=== PATIENT | female | born 1995 | race Caucasian/White ===

== ENCOUNTER 2022-05-08 16:41 | Inpatient (IN) | payer MEDICARE, MEDICAID, SELFPAY ==
[2022-05-08 16:57] VITALS: BP 117/79; PULSE 82; TEMP 36.4
[2022-05-08 17:14] VITALS: BMI 27.3
[2022-05-08] MEDS: traZODone HCL 100 MG TABLET 200 MG PO (22:10)
[2022-05-08] MEDS: Pregabalin 200 MG CAPSULE PO (22:11)
[2022-05-08] MEDS: LORazepam 0.5 MG TABLET PO (22:11)
--- NOTE | 2022-05-09 | ECG_ITS ---
Test Reason : ect clearence Blood Pressure : / mmHG Vent. Rate : 064 BPM Atrial Rate : 064 BPM P-R Int : 132 ms QRS Dur : 088 ms QT Int : 394 ms P-R-T Axes : 002 033 026 degrees QTc Int : 406 ms Normal sinus rhythm Normal ECG No previous ECGs available Referred By: Sabina Steele Electronically Signed By:AKANKSHA MARIN MD
--- NOTE | 2022-05-09 00:20 | PC.ADMIT ---
Pt is a 26 year old non-binary individual who identifies as they/them . Pt was admitted to [facility] at 1655 following referral from [facility] for a lateral transfer to receive ECT treatment here. Pt has had admissions at [place], [facility], [place] and others. Pt has a history of treatment for substance use. Pt was admitted to [place] [id number] for treatment of MDD and SI with a plan to kill self with an overdose of Klonopin. Pt had been hospitalized at [facility] and in December was d/c to [facility] for a series of 14 ECT treatments after which pt reported doing well for six weeks. Pt reported that through the month of March they had experienced an increase in panic attacks especially at work as well as racing thoughts. Pt felt ashamed of the issues at work and resigned their position there. An additional stressor at the same time was that pt's landlord was threatening eviction. Pt began to have difficulty with self care, poor attention/ concentration, low energy and anhedonia. Pt reported additionally disrupted sleep and suicidal thinking. Pt rates anxiety 10/10, depression 9/10. Pt denies AH/VH at this time. Pt reports active SI withy no plan. Pt states thay can seek help from staff. Pt reported a suicide attempt in July of 2019 that required 48 stitches to their left forearm. Pt reports poor sleep with frequent awakening. Pt was calm and cooperative during admission. Pt denies Etoh or substance use; pt says has 19 months of sobriety and utilizes AA. Pt reported weight gain, but assessment from [facility] indicates weight loss of about 20lbs. Medical issues include: migraines, asthma, GERD, IBS, history of eating d/o, Lyme disease, mononucleosis, history of Clostridium difficile, PMDD, recurrent UTI. [id number] done, Dr-to-Dr done, safety tool done, Treatment plan done and admitting orders obtained. Pt is resting in room on 15 minute checks at this time.
[2022-05-09 07:00] VITALS: BP 110/61; PULSE 94; RESP 16; TEMP 36.5; O2SAT 98
[2022-05-09] MEDS: metFORMIN HCl 500 MG TABLET PO ×2 (08:43→16:11)
[2022-05-09] MEDS: buPROPion HCl XL 150 MG TAB.ER.24H PO (08:43)
[2022-05-09] MEDS: LORazepam 1 MG TABLET PO (08:43)
[2022-05-09] MEDS: Sertraline HCL 100 MG TABLET 150 MG PO (08:43)
[2022-05-09] MEDS: buPROPion HCl XL 300 MG TAB.ER.24H PO (08:44)
[2022-05-09] MEDS: Pregabalin 200 MG CAPSULE PO ×3 (08:44→20:46)
[2022-05-09 09:38] LABS: Estimated Average Glucose 97 mg/dL
[2022-05-09 09:53] LABS: Alanine Aminotransferase 33 U/L (0-31); Albumin Level 4.4 g/dL (3.5-5.0); Alkaline Phosphatase 75 U/L (39-117); Anion Gap 11 (12-20); Aspartate Amino Transferase 21 U/L (5-31); Bilirubin Total 0.3 mg/dL (0.0-1.0); Blood Urea Nitrogen 16 mg/dL (9-16); Calcium 8.8 mg/dL (8.4-10.2); Carbon Dioxide 22 mmol/L (22-29); Chloride 110 mmol/L (96-108); Cholesterol 196 mg/dL; Creatinine Clr Calc Pharmacy 100.7; Estimated Glomerular Filt Rate > 60; Glucose Fasting 76 mg/dL (60-99); HDL Cholesterol 47 mg/dL; LDL Cholesterol Calculated 133 mg/dl; Potassium 4.4 mmol/L (3.3-5.1); Sodium 139 mmol/L (135-145); Triglycerides 83 mg/dL
--- NOTE | 2022-05-09 10:11 | HO.PSYADMNOT ---
HPI Date of Service: 05/09/22 Chief Complaint: SI Sources of Information: patient interviewed, chart reviewed and crisis/core team assessment reviewed HPI Subjective Notes: [place]le Warning and Conditional Voluntary Narrative: Patient is a 26 yo female, uses They/Them pronouns, with hx of refractory, severe depression, PTSD, ECT trials, chronic intermittent SI who presents for ECT for worsening depression, AH, SI. Patient reports patient was discharged from [facility] about a month ago with the addition of Lyrica which they found helpful for anxiety and reduced her number of panic attacks down from every day to just a few times per week. Despite this new medication, they remained depressed over these past weeks. Patient has been able to continue attending to ADLs however endorses excessive sleep, diminished interest, increased guilt, low energy, poor concentration. Also Patient reports that patient's chronic suicidality has become more severe and included plans and eventually an intention to either overdose or hang themself; patient's partner is a strong protective factor and kept patient from proceeding forward. Patient reports intermittent auditory hallucinations which are only present during severe depression of a commentary on her actions. Patient has insight to know this is is hallucination and due to depression. 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 Patient however cites difficulty getting a ride to and from maintenance ECT which patient thinks would likely help them to remain stable. Patient reports they have ongoing PTSD symptoms from history of trauma, though they did not elaborate. Denies any history of manic episodes or behaviors. Currently patient has intermittent SI but no plan or intention. Patient remains sober from alcohol for the past 19 months. Patient is eager for ECT trial. Past Psychiatric History: Long history of refractory depression Patient has therapist for the past 3 years whom patient sees once a week; good rapport [facility] in process Moderate Success with ECT trials Past med trials include: [place]: Caused nausea Clozapine: Does not remember it working Medical Evaluation Reviewed: Hospitalist Adam Pending [facility] Medical History (Updated 05/09/22 @ 15:55 by Valentino Hernandez MD) Alcohol use disorder, moderate, in sustained remission, dependence Chronic post-traumatic stress disorder (PTSD) MDD (major depressive disorder), recurrent, severe, with psychosis Panic disorder Family History: Mother: Schizoaffective disorder Social History: Graduated high school; some college but discontinued due to depressive/anxious symptoms 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; quit a couple months ago due to overwhelming depression and anxiety Has significant other with whom patient lives Currently patient and partner are having to move out of the apartment due to finances; another apartment is pending No interactions with biological family Substance History: History of alcohol abuse; sober for 19 months using AA Trauma History: History of trauma; patient did not elaborate Diagnostics Vital Signs (24Hr): Vital Signs - 24 hr 05/08/22 16:57 05/09/22 07:00 Temperature 97.6 F 97.7 F Pulse Rate 82 94 Respiratory Rate 16 Blood Pressure 117/79 110/61 Pulse Oximetry 98 Oxygen Delivery Method Room Air BMI result Body Mass Index 27.3 Labs Results: 05/09/22 07:57 Labs: Laboratory Results - last 48 hr 05/09/22 05/09/22 07:57 07:57 Sodium 139 Potassium 4.4 Chloride 110 H Carbon Dioxide 22 Anion Gap 11 L BUN 16 Creatinine 0.94 Estim Creat Clear Calc 100.7 Estimated GFR > 60 Fasting Glucose 76 Estimat Average Glucose 97 Hemoglobin A1c % 5.0 Calcium 8.8 Total Bilirubin 0.3 AST 21 ALT 33 H Alkaline Phosphatase 75 Total Protein 7.0 Albumin 4.4 Triglycerides 83 Cholesterol 196 LDL Cholesterol, Calc 133 HDL Cholesterol 47 Meds/Allergies Meds Home Medications Medication Instructions Recorded Confirmed Type Ativan 0.5 mg PO BID@1500,2100 05/08/22 05/08/22 History Ativan 1 mg PO DAILY 05/08/22 05/08/22 History Lyrica 200 mg PO TID 05/08/22 05/08/22 History Wellbutrin SR 450 mg PO DAILY 05/08/22 05/08/22 History albuterol sulfate 90 mcg/actuation 2 inh inhalation Q6H PRN Wheezing 05/08/22 05/08/22 History aerosol inhaler (ProAir HFA) melatonin 5 mg PO BEDTIME PRN Insomnia 05/08/22 05/08/22 History metformin 500 mg PO BID 05/08/22 05/08/22 History prazosin 2 mg PO BEDTIME 05/08/22 05/08/22 History sertraline 150 mg PO DAILY 05/08/22 05/08/22 History topiramate 50 mg PO BID 05/08/22 05/08/22 History trazodone 200 mg PO BEDTIME 05/08/22 05/08/22 History Allergies Allergies Allergy/AdvReac Type Severity Reaction Status Date / Time Peanut Butter Allergy Anaphylaxis Verified 05/08/22 17:18 shellfish derived Allergy Swelling Verified 05/08/22 17:20 tree nut Allergy Anaphylaxis Verified 05/08/22 17:19 Sulfa (Sulfonamide AdvReac Rash Verified 05/08/22 17:20 Antibiotics) Mental Status Exam Mental Status Exam Narrative: Pt is alert and oriented; behavior is cooperative, friendly and calm; patient is not in distress; dressed in casual attire with unkempt hair but adequate hygiene; mood is described as depressed and affect congruent, blunted, downcast; minimal eye contact but making effort; Speech is normal rate, volume and prosody and not pressured; psychomotor retardation present; thought process is organized and goal directed; Thought content is on tx, trying to be hopeful; otherwise pertinent to relevant topics and without any delusional content, paranoid ideations or grandiosity; Intermittent SI present; no HI. Intermittent AH present. Patients insight and judgment appear intact. Assessment & Plan Assessment & Plan (1) MDD (major depressive disorder), recurrent, severe, with psychosis: Status: Acute Code(s): F33.3 - Major depressive disorder, recurrent, severe with psychotic symptoms (2) Chronic post-traumatic stress disorder (PTSD): Status: Acute Code(s): F43.12 - Post-traumatic stress disorder, chronic (3) Panic disorder: Status: Acute Code(s): F41.0 - Panic disorder [episodic paroxysmal anxiety] (4) Alcohol use disorder, moderate, in sustained remission, dependence: Status: Acute Code(s): F10.21 - Alcohol dependence, in remission Plan Patient is a 26 yo female, uses They/Them pronouns, with hx of refractory, severe depression, PTSD, ECT trials, chronic intermittent SI who presents for ECT for worsening depression, AH, SI. Patient reports patient was discharged from [facility] about a month ago with the addition of Lyrica which they found helpful for anxiety and reduced their number of panic attacks down from every day to just a few times per week. Despite this new medication, they remained depressed over these past weeks. -patient eager for ECT and would like help setting up for maintenance ECT -continues to have intermittent SI but no plans or intent and feels safe on the unit PLAN: CV Q 15 minute checks Continue home medications for now Patient reports that Zoloft has been helpful; has never been on a higher dose; will consider increasing Consult placed for ECT clearance; EKG ordered for ECT clearance Patient educated on: diagnosis, medication risk/benefits, substance abuse and therapeutic strategies Informed Consent: understands Reason for continued inpatient stay Substantial Risk for: inability to function and rapid decompensation
[2022-05-09 10:16] LABS: Thyroid Stimulating Hormone 1.65 uIU/mL (0.32-4.0)
[2022-05-09 10:44] LABS: Folate 15.9 ng/mL (> or = 4.0); Vitamin B12 358 pg/mL (200-900)
[2022-05-09] MEDS: Nicotine Polacrilex Lozenge 4 MG LOZENGE BUCCAL (11:01)
[2022-05-09] MEDS: Nicotine Polacrilex 2 MG GUM BUCCAL ×2 (13:52→21:04)
[2022-05-09] MEDS: LORazepam 0.5 MG TABLET PO ×2 (14:40→20:46)
[2022-05-09 15:00] VITALS: BP 120/72
--- NOTE | 2022-05-09 15:07 | HO.PM.IMCN ---
History of Present Illness Data of Consult Service Date: 05/09/22 Primary Care Provider: Unknown Physician HPI Reason for consult: Routine Medical H&P + pre-op eval for ECT This is a 26 year old female with a PMH of intermittent asthma and migranes who is admitted to . Medical consult requested for routine medical H&P as well as pre-op eval prior to ECT. Pt seen and examined in her room. She denies any cardiac symptoms. Reports her asthma is intermittent and related to seasonal allergies. On albuterol inhaler. Denies any personal history of CAD/TBI. She reports a history of migranes for which she is on topomax. She reports prior ECTs without any cardiopulmonary issues related to ECTs. PMH Asthma Migranes PSH Denies Tobacco 2 cigs daily Denies EtOH (sober 19 months); Denies illicit substances FH no history of CAD mental health issues Review of Systems Review of Systems: negative except HPI [facility] Medical History (Updated 05/09/22 @ 16:09 by Richardson Willis MD) Alcohol use disorder, moderate, in sustained remission, dependence Chronic post-traumatic stress disorder (PTSD) MDD (major depressive disorder), recurrent, severe, with psychosis Panic disorder Social History Household Members: Significant Other Housing: Apartment Do you presently have visiting nurse or other home services: No Patient Tobacco Use Status: Current someday Tobacco user Tobacco use type: Cigarette Cigarettes Per Day: 2 Years Smoked: 10 Smoked in Last 30 Days: Yes e-Cigarette/Vaping Use: Currently Using Frequency of e-Cigarette/Vaping Use: 5 or 6 times daily if available as a treat Patient Interested in Nicotine Replacement: Yes (Pt would like Nicotine gum) Patient Given Instructions on How to Stop Smoking: Yes Date Education Initiated: 05/08/22 Second Hand Smoke Exposure: Yes Use of substances other than those prescribed or required for medical reasons: No Currently Displaying Signs/Symptoms of Drug Intoxication Withdrawal: No Any prior treatment program specific to substance use: Yes ([place] in 2019) Have you been hit, kicked, punched, or otherwise hurt by someone within the past year? If so, by whom?: No Do you feel safe in your current relationship?: Yes Is there a partner from a previous relationship who is making you feel unsafe now?: No Are you made to feel afraid or neglected: No Spiritual Healthcare Practices: None Latter-Day Healthcare Practices: None Cultural Healthcare Practices: None Advance Directives: No Advance Directives Information Provided: No Advance Directives on File: No Do you have thoughts of harming others: None Do you have a plan to hurt others: No Plan Recently lost weight without trying: No Eating poorly because of decreased appetite: Yes Nutrition Risks: No Nutritional Risk Patient : No : No Poor oral hygiene: Yes service: No Sexual orientation: Did not discuss Meds Allergies Allergy/AdvReac Type Severity Reaction Status Date / Time Peanut Butter Allergy Anaphylaxis Verified 05/08/22 17:18 shellfish derived Allergy Swelling Verified 05/08/22 17:20 tree nut Allergy Anaphylaxis Verified 05/08/22 17:19 Sulfa (Sulfonamide AdvReac Rash Verified 05/08/22 17:20 Antibiotics) Active Medications: Current Medications Acetaminophen (Acetaminophen 325 Mg Tablet) 650 mg PO Q6H PRN PRN Reason: Headache/Pain Mild Scale (1-3) Al Hydroxide/Mg Hydroxide (Magnesium Hydrox/Alum Hydrox 30 Ml Oral.Susp) 30 ml PO Q6H PRN PRN Reason: Heartburn/Nausea Albuterol Sulfate (Albuterol Sulfate 90 Mcg 8 Gm Inhaler) 2 puff INHALE Q6H PRN PRN Reason: Wheezing Bupropion HCl (Bupropion Hcl Xl 300 Mg Tab.Er.24h) 300 mg PO DAILY [facility] Last Admin: 05/09/22 08:44 Dose: 300 mg Bupropion HCl (Bupropion Hcl Xl 150 Mg Tab.Er.24h) 150 mg PO DAILY [facility] Last Admin: 05/09/22 08:43 Dose: 150 mg Hydroxyzine HCl (Hydroxyzine Hcl 25 Mg Tablet) 25 mg PO Q6H PRN PRN Reason: Anxiety Lorazepam (Lorazepam 0.5 Mg Tablet) 0.5 mg PO BID@1500,2100 [facility] Last Admin: 05/09/22 14:40 Dose: 0.5 mg Lorazepam (Lorazepam 1 Mg Tablet) 1 mg PO DAILY [facility] Last Admin: 05/09/22 08:43 Dose: 1 mg Lorazepam (Lorazepam 0.5 Mg Tablet) 0.5 mg PO DAILY PRN PRN Reason: break through anxiety Magnesium Hydroxide (Milk Of Magnesia 30 Ml Oral.Susp) 30 ml PO DAILY PRN PRN Reason: Constipation Melatonin (Melatonin 3 Mg Tablet) 6 mg PO BEDTIME PRN PRN Reason: Insomnia Metformin HCl (Metformin Hcl 500 Mg Tablet) 500 mg PO BIDWM [facility] Last Admin: 05/09/22 08:43 Dose: 500 mg Nicotine (Nicotine 21 Mg Patch.Td24) 21 mg TRANSDERMA DAILY PRN PRN Reason: smoking cessation Nicotine Polacrilex (Nicotine Polacrilex 2 Mg Gum) 2 mg BUCCAL Q1H PRN PRN Reason: Nicotine Cravings Last Admin: 05/09/22 13:52 Dose: 2 mg Prazosin HCl (Prazosin Hcl 1 Mg Capsule) 2 mg PO BEDTIME IDANIA Pregabalin (Pregabalin 200 Mg Capsule) 200 mg PO TID [facility] Last Admin: 05/09/22 14:40 Dose: 200 mg Sertraline HCl (Sertraline Hcl 100 Mg Tablet) 150 mg PO DAILY [facility] Last Admin: 05/09/22 08:43 Dose: 150 mg Trazodone HCl (Trazodone Hcl 50 Mg Tablet) 50 mg PO BEDTIME PRN PRN Reason: Insomnia Trazodone HCl (Trazodone Hcl 100 Mg Tablet) 200 mg PO BEDTIME [facility] Last Admin: 05/08/22 22:10 Dose: 200 mg Home Medications Medication Instructions Recorded Confirmed Last Taken Type Ativan 0.5 mg PO BID@1500,2100 05/08/22 05/08/22 Unknown History Ativan 1 mg PO DAILY 05/08/22 05/08/22 Unknown History Lyrica 200 mg PO TID 05/08/22 05/08/22 Unknown History Wellbutrin SR 450 mg PO DAILY 05/08/22 05/08/22 Unknown History albuterol sulfate 90 mcg/actuation 2 inh inhalation Q6H PRN Wheezing 05/08/22 05/08/22 Unknown History aerosol inhaler (ProAir HFA) melatonin 5 mg PO BEDTIME PRN Insomnia 05/08/22 05/08/22 Unknown History metformin 500 mg PO BID 05/08/22 05/08/22 05/08/22 07:00 History prazosin 2 mg PO BEDTIME 05/08/22 05/08/22 05/07/22 20:54 History 2 mg sertraline 150 mg PO DAILY 05/08/22 05/08/22 05/08/22 08:16 History topiramate 50 mg PO BID 05/08/22 05/08/22 05/08/22 08:16 History 50 mg trazodone 200 mg PO BEDTIME 05/08/22 05/08/22 05/07/22 20:54 History 200 mg Physical Exam Vital Signs and Narrative: Vital Signs: Last Vital Signs Temp 97.7 F 05/09/22 07:00 Pulse 94 05/09/22 07:00 Resp 16 05/09/22 07:00 BP 120/72 05/09/22 15:00 Pulse Ox 98 05/09/22 07:00 O2 Del Method 05/09/22 07:00 BMI result Body Mass Index 27.3 Const: Other: General - no acute distress, appears comfortable Cardiovascular - regular rate and rhythm, S1-S2 Lungs - normal respiratory effort, clear to auscultation bilaterally, no wheezing Abdomen - soft, nontender, no rebound or guarding Extremities - no edema bilaterally Neuro - awake and alert, no focal deficits Results Labs CBC and Chem 7: 05/09/22 07:57 Labs: Laboratory Results - last 24 hr 05/09/22 05/09/22 05/09/22 07:57 07:57 07:57 Anion Gap 11 L Estim Creat Clear Calc 100.7 Estimated GFR > 60 Fasting Glucose 76 Estimat Average Glucose 97 Hemoglobin A1c % 5.0 Calcium 8.8 Total Bilirubin 0.3 AST 21 ALT 33 H Alkaline Phosphatase 75 Total Protein 7.0 Albumin 4.4 Triglycerides 83 Cholesterol 196 LDL Cholesterol, Calc 133 HDL Cholesterol 47 Vitamin B12 358 Folate 15.9 TSH 1.65 Assessment and Plan (1) Routine medical exam: Status: Acute Plan 26 yo female who is admitted to . Medical consult is requested for routine medical H&P as well as preoperative evaluation prior to ECT. Patient has previously tolerated ECTs. Her EKG is reviewed and is normal sinus rhythm. She does not have any contraindications for ECT. Would check a CBC if not done at transferring facility otherwise no further workup is needed prior to proceeding. Continue her baseline asthma/migrane meds Will sign off. Please reconsult PRN.
[2022-05-09 18:00] VITALS: BP 89/64; PULSE 122; RESP 16; TEMP 36.8; O2SAT 99
[2022-05-09] MEDS: traZODone HCL 100 MG TABLET 200 MG PO (20:46)
[2022-05-09] MEDS: Prazosin HCL 1 MG CAPSULE 2 MG PO (20:46)
[2022-05-10] VITALS (10 sets, daily range): BP systolic 85–120; BP diastolic 63–78; PULSE 66–97; RESP 12–23; TEMP 36.4–37.1; O2SAT 95–99
--- NOTE | 2022-05-10 09:00 | P.CONAN_ITS ---
[facility] Active Problems Active Problems: All Active Problems (Updated 05/09/22 @ 16:09 by Richardson Willis MD) Routine medical exam (Acute) Alcohol use disorder, moderate, in sustained remission, dependence (Acute) Panic disorder (Acute) Chronic post-traumatic stress disorder (PTSD) (Acute) MDD (major depressive disorder), recurrent, severe, with psychosis (Acute) Past Medical History Medical History (Updated 05/09/22 @ 16:09 by Richardson Willis MD) Alcohol use disorder, moderate, in sustained remission, dependence Chronic post-traumatic stress disorder (PTSD) MDD (major depressive disorder), recurrent, severe, with psychosis Panic disorder Family History Family history of problems with anesthesia: No Surgical History History of Problems with Anesthesia: No Social History Social History Household Members: Significant Other Housing: Apartment Do you presently have visiting nurse or other home services: No Patient Tobacco Use Status: Current someday Tobacco user Tobacco use type: Cigarette Cigarettes Per Day: 2 Years Smoked: 10 Smoked in Last 30 Days: Yes e-Cigarette/Vaping Use: Currently Using Frequency of e-Cigarette/Vaping Use: 5 or 6 times daily if available as a treat Patient Interested in Nicotine Replacement: Yes (Pt would like Nicotine gum) Patient Given Instructions on How to Stop Smoking: Yes Date Education Initiated: 05/08/22 Second Hand Smoke Exposure: Yes Use of substances other than those prescribed or required for medical reasons: No Currently Displaying Signs/Symptoms of Drug Intoxication Withdrawal: No Any prior treatment program specific to substance use: Yes ([facility] in 2020) Have you been hit, kicked, punched, or otherwise hurt by someone within the past year? If so, by whom?: No Do you feel safe in your current relationship?: Yes Is there a partner from a previous relationship who is making you feel unsafe now?: No Are you made to feel afraid or neglected: No Spiritual Healthcare Practices: None Jainism Healthcare Practices: None Cultural Healthcare Practices: None Are you DNR?: No Advance Directives: No Advance Directives Information Provided: No Advance Directives on File: No Do you have thoughts of harming others: None Do you have a plan to hurt others: No Plan Recently lost weight without trying: No Eating poorly because of decreased appetite: Yes Nutrition Risks: No Nutritional Risk Patient : No : No Poor oral hygiene: Yes service: No Sexual orientation: Did not discuss Meds Allergies Allergy/AdvReac Type Severity Reaction Status Date / Time Peanut Butter Allergy Anaphylaxis Verified 05/08/22 17:18 shellfish derived Allergy Swelling Verified 05/08/22 17:20 tree nut Allergy Anaphylaxis Verified 05/08/22 17:19 Sulfa (Sulfonamide AdvReac Rash Verified 05/08/22 17:20 Antibiotics) Active Medications: Current Medications Acetaminophen (Acetaminophen 325 Mg Tablet) 650 mg PO Q6H PRN PRN Reason: Headache/Pain Mild Scale (1-3) Al Hydroxide/Mg Hydroxide (Magnesium Hydrox/Alum Hydrox 30 Ml Oral.Susp) 30 ml PO Q6H PRN PRN Reason: Heartburn/Nausea Albuterol Sulfate (Albuterol Sulfate 90 Mcg 8 Gm Inhaler) 2 puff INHALE Q6H PRN PRN Reason: Wheezing Bupropion HCl (Bupropion Hcl Xl 300 Mg Tab.Er.24h) 300 mg PO DAILY [facility] Last Admin: 05/09/22 08:44 Dose: 300 mg Bupropion HCl (Bupropion Hcl Xl 150 Mg Tab.Er.24h) 150 mg PO DAILY [facility] Last Admin: 05/09/22 08:43 Dose: 150 mg Hydroxyzine HCl (Hydroxyzine Hcl 25 Mg Tablet) 25 mg PO Q6H PRN PRN Reason: Anxiety Lorazepam (Lorazepam 0.5 Mg Tablet) 0.5 mg PO BID@1500,2100 [facility] Last Admin: 05/09/22 20:46 Dose: 0.5 mg Lorazepam (Lorazepam 1 Mg Tablet) 1 mg PO DAILY [facility] Last Admin: 05/09/22 08:43 Dose: 1 mg Lorazepam (Lorazepam 0.5 Mg Tablet) 0.5 mg PO DAILY PRN PRN Reason: break through anxiety Magnesium Hydroxide (Milk Of Magnesia 30 Ml Oral.Susp) 30 ml PO DAILY PRN PRN Reason: Constipation Melatonin (Melatonin 3 Mg Tablet) 6 mg PO BEDTIME PRN PRN Reason: Insomnia Metformin HCl (Metformin Hcl 500 Mg Tablet) 500 mg PO BIDWM [facility] Last Admin: 05/09/22 16:11 Dose: 500 mg Nicotine (Nicotine 21 Mg Patch.Td24) 21 mg TRANSDERMA DAILY PRN PRN Reason: smoking cessation Nicotine Polacrilex (Nicotine Polacrilex 2 Mg Gum) 2 mg BUCCAL Q1H PRN PRN Reason: Nicotine Cravings Last Admin: 05/09/22 21:04 Dose: 2 mg Prazosin HCl (Prazosin Hcl 1 Mg Capsule) 2 mg PO BEDTIME [facility] Last Admin: 05/09/22 20:46 Dose: 2 mg Pregabalin (Pregabalin 200 Mg Capsule) 200 mg PO TID [facility] Last Admin: 05/09/22 20:46 Dose: 200 mg Sertraline HCl (Sertraline Hcl 100 Mg Tablet) 150 mg PO DAILY [facility] Last Admin: 05/09/22 08:43 Dose: 150 mg Trazodone HCl (Trazodone Hcl 50 Mg Tablet) 50 mg PO BEDTIME PRN PRN Reason: Insomnia Trazodone HCl (Trazodone Hcl 100 Mg Tablet) 200 mg PO BEDTIME [facility] Last Admin: 05/09/22 20:46 Dose: 200 mg Home Medications Medication Instructions Recorded Confirmed Last Taken Type Ativan 0.5 mg PO BID@1500,2100 05/08/22 05/08/22 Unknown History Ativan 1 mg PO DAILY 05/08/22 05/08/22 Unknown History Lyrica 200 mg PO TID 05/08/22 05/08/22 Unknown History Wellbutrin SR 450 mg PO DAILY 05/08/22 05/08/22 Unknown History albuterol sulfate 90 mcg/actuation 2 inh inhalation Q6H PRN Wheezing 05/08/22 05/08/22 Unknown History aerosol inhaler (ProAir HFA) melatonin 5 mg PO BEDTIME PRN Insomnia 05/08/22 05/08/22 Unknown History metformin 500 mg PO BID 05/08/22 05/08/22 05/08/22 07:00 History prazosin 2 mg PO BEDTIME 05/08/22 05/08/22 05/07/22 20:54 History 2 mg sertraline 150 mg PO DAILY 05/08/22 05/08/22 05/08/22 08:16 History topiramate 50 mg PO BID 05/08/22 05/08/22 05/08/22 08:16 History 50 mg trazodone 200 mg PO BEDTIME 05/08/22 05/08/22 05/07/22 20:54 History 200 mg Exam Exam Date and Time: May 10, 2022 0900 Height,Weight and Vital Signs: Height 5 ft 8 in Weight 81.647 kg Last Vital Signs Temp 98 F 05/10/22 08:46 Pulse 76 05/10/22 08:46 Resp 12 05/10/22 08:46 BP 103/69 05/10/22 08:46 Pulse Ox 96 05/10/22 08:46 O2 Del Method 05/10/22 08:46 Pertinent Lab Results Pertinent Lab Results: Laboratory Tests 05/09/22 05/09/22 05/09/22 07:57 07:57 07:57 Sodium 139 Potassium 4.4 Chloride 110 H Carbon Dioxide 22 Anion Gap 11 L BUN 16 Creatinine 0.94 Estim Creat Clear Calc 100.7 Estimated GFR > 60 Fasting Glucose 76 Estimat Average Glucose 97 Hemoglobin A1c % 5.0 Calcium 8.8 Total Bilirubin 0.3 AST 21 ALT 33 H Alkaline Phosphatase 75 Total Protein 7.0 Albumin 4.4 Triglycerides 83 Cholesterol 196 LDL Cholesterol, Calc 133 HDL Cholesterol 47 Vitamin B12 358 Folate 15.9 TSH 1.65 Airway Mallampati Class: II TM Dist: >3cm Neck ROM: Full Heart: rrr Lungs: cta Assessment and Plan Assessment Anesthesia Assessment: Anesthesia Plan Discussed and Chart Reviewed Final Anesthetic Review Family History of Problems with Anesthesia: No History of Problems with Anesthesia: No NPO: Yes ASA Class: III Final Preanesthetic Review: No Changes in Pt Med Stat, Meds/Allgs Chart Reviewed and Consent Obtained/Reviewed Patient Risk: Intermediate Procedure Risk: Intermediate Anesthetic Plan Anesthetic Plan: GA Disposition: Standard PACU
[2022-05-10 09:10] LABS: COVID-19 Test Negative (Negative)
--- NOTE | 2022-05-10 10:30 | MHC.SHP ---
Pre-Procedural Eval Section A Date of Service: 05/10/22 The patient is an INPATIENT: Yes Changes since office visit: Yes Patient answered all questions; No Cold of Flu in the past 2 weeks, No New Medical Problems and No Changes in Medication The History & Physical has been completed within 30 days and I have reviewed it.: Yes Section B Chief Complaint: SI Allergies: Allergies Allergy/AdvReac Type Severity Reaction Status Date / Time Peanut Butter Allergy Anaphylaxis Verified 05/08/22 17:18 shellfish derived Allergy Swelling Verified 05/08/22 17:20 tree nut Allergy Anaphylaxis Verified 05/08/22 17:19 Sulfa (Sulfonamide AdvReac Rash Verified 05/08/22 17:20 Antibiotics) Plan I have reviewed the history and physical and performed a pertinent physical examination on my patient. No changes have occurred unless specified.
--- NOTE | 2022-05-10 10:42 | HO.ECTPROC ---
ECT Procedure Note Diagnosis/Treatment Date of Service: 05/10/22 Diagnosis: Major Depressive Disorder and Other (PTSD) Current Treatment Number: 1 Treatment: Series Interval Clinical Notes: PATIENT'S RECORDS REVIEWED HISTORY OF GOOD RESPONSE TO BY TEMPORAL ECT LAST TREATED AT [facility]. STATES MOST LIKELY UNABLE TO DO OUTPATIENT ECT. COMPLEX DEPRESSION AND PTSD DENIES SIGNIFICANT PRIOR SIDE EFFECTS FROM ECT HAS HAD AT [facility] HISTORY OF MUSCLE PAIN WITH SUCCINYLCHOLINE DISCUSSED WITH ANESTHESIA USING LOW-DOSE NON DIPOLE ARISING AGENT ROCURONIUM 5 MG IN ADDITION TO SUCCINYLCHOLINE TO PREVENT MUSCLE PAIN ECT Settings Device: THYMATRON DGx Electrode Placement: Bitemporal Program/Pulse Width: 0.50 Energy Percent: 100 Seizure Duration By EEG (in seconds): 32 Medications Administration General Anesthetic: Etomidate (16) Muscle Relaxant: Succinylcholine (100) Ancillary Medications Analgesics: Torodol - Pre ECT (30) Anti-emetics: Zofran - Post ECT Miscillaneous Medications: Flumazenil (500 MG) Airway Management Airway Management: Bag Mask Ventilation Treatment Recommendations No Changes Recommended: No change Notes: HYPERVENTILATE PRIOR TO TREATMENT
[2022-05-10] MEDS: Pregabalin 200 MG CAPSULE PO ×3 (11:56→20:10)
[2022-05-10] MEDS: Sertraline HCL 100 MG TABLET 150 MG PO (11:58)
[2022-05-10] MEDS: Nicotine Polacrilex 2 MG GUM BUCCAL (11:59)
[2022-05-10] MEDS: buPROPion HCl XL 150 MG TAB.ER.24H PO (11:59)
[2022-05-10] MEDS: buPROPion HCl XL 300 MG TAB.ER.24H PO (11:59)
[2022-05-10] MEDS: metFORMIN HCl 500 MG TABLET PO ×2 (11:59→15:51)
[2022-05-10] MEDS: LORazepam 1 MG TABLET PO (11:59)
[2022-05-10] MEDS: LORazepam 0.5 MG TABLET PO ×2 (15:50→20:10)
--- NOTE | 2022-05-10 18:45 | HO.PSYCHPN ---
Subjective Subjective Date of Service: 05/10/22 Reason For Visit: SI Subjective Notes: Conditional Voluntary Healthcare Proxy: No Guardianship: No Interim History: PATIENT'S CHART REVIEWED EXTENSIVELY RECORDS FROM BOTH [facility] IN [facility]. REVIEWED RISKS BENEFITS SIDE EFFECTS AND ALTERNATIVES TO TREATMENT WITH ECT. PATIENT ABLE TO GIVE INFORMED CONSENT SEE CT NO Mental Status Exam Mental Status Exam Narrative: Pt is alert and oriented; behavior is cooperative, casually dressed good eye contact. It denies current severe recurrent intrusive PTSD recollections mood is depressed and affect congruent, blunted, downcast; minimal eye contact but making effort; Speech is normal rate, volume and prosody and not pressured; some psychomotor retardation present; thought process is organized and goal directed; Thought content is on tx, trying to be hopeful, managing pending homelessness; otherwise pertinent to relevant topics and without any delusional content, paranoid ideation grandiosity; No active SI; no HI. no AH. Patients insight and judgment appear intact. Diagnostics Vital Signs (24Hr): Vital Signs - 24 hr 05/12/22 06:00 Temperature 97.4 F Pulse Rate 90 Blood Pressure 100/52 L Pulse Oximetry 97 Oxygen Delivery Method Room Air BMI result Body Mass Index 27.3 Labs Results: 05/09/22 07:57 Medications Medications Current Medications Acetaminophen (Acetaminophen 325 Mg Tablet) 650 mg PO Q6H PRN PRN Reason: Headache/Pain Mild Scale (1-3) Al Hydroxide/Mg Hydroxide (Magnesium Hydrox/Alum Hydrox 30 Ml Oral.Susp) 30 ml PO Q6H PRN PRN Reason: Heartburn/Nausea Albuterol Sulfate (Albuterol Sulfate 90 Mcg 8 Gm Inhaler) 2 puff INHALE Q6H PRN PRN Reason: Wheezing Bupropion HCl (Bupropion Hcl Xl 300 Mg Tab.Er.24h) 300 mg PO DAILY [facility] Last Admin: 05/12/22 09:03 Dose: 300 mg Bupropion HCl (Bupropion Hcl Xl 150 Mg Tab.Er.24h) 150 mg PO DAILY [facility] Last Admin: 05/12/22 09:03 Dose: 150 mg Hydroxyzine HCl (Hydroxyzine Hcl 25 Mg Tablet) 25 mg PO Q6H PRN PRN Reason: Anxiety Lorazepam (Lorazepam 0.5 Mg Tablet) 0.5 mg PO BID@1500,2100 [facility] Last Admin: 05/12/22 14:14 Dose: 0.5 mg Lorazepam (Lorazepam 1 Mg Tablet) 1 mg PO DAILY [facility] Last Admin: 05/12/22 09:05 Dose: 1 mg Lorazepam (Lorazepam 0.5 Mg Tablet) 0.5 mg PO DAILY PRN PRN Reason: break through anxiety Last Admin: 05/12/22 18:32 Dose: 0.5 mg Magnesium Hydroxide (Milk Of Magnesia 30 Ml Oral.Susp) 30 ml PO DAILY PRN PRN Reason: Constipation Melatonin (Melatonin 3 Mg Tablet) 6 mg PO BEDTIME PRN PRN Reason: Insomnia Metformin HCl (Metformin Hcl 500 Mg Tablet) 500 mg PO BIDWM [facility] Last Admin: 05/12/22 17:19 Dose: 500 mg Nicotine (Nicotine 21 Mg Patch.Td24) 21 mg TRANSDERMA DAILY PRN PRN Reason: smoking cessation Nicotine Polacrilex (Nicotine Polacrilex 2 Mg Gum) 2 mg BUCCAL Q1H PRN PRN Reason: Nicotine Cravings Last Admin: 05/12/22 18:13 Dose: 2 mg Prazosin HCl (Prazosin Hcl 1 Mg Capsule) 2 mg PO BEDTIME [facility] Last Admin: 05/11/22 21:54 Dose: 2 mg Pregabalin (Pregabalin 200 Mg Capsule) 200 mg PO TID [facility] Last Admin: 05/12/22 14:14 Dose: 200 mg Sertraline HCl (Sertraline Hcl 100 Mg Tablet) 150 mg PO DAILY [facility] Last Admin: 05/12/22 09:04 Dose: 150 mg Trazodone HCl (Trazodone Hcl 50 Mg Tablet) 50 mg PO BEDTIME PRN PRN Reason: Insomnia Trazodone HCl (Trazodone Hcl 100 Mg Tablet) 200 mg PO BEDTIME [facility] Last Admin: 05/11/22 21:55 Dose: 200 mg Allergies Allergies Allergy/AdvReac Type Severity Reaction Status Date / Time Peanut Butter Allergy Anaphylaxis Verified 05/08/22 17:18 shellfish derived Allergy Swelling Verified 05/08/22 17:20 tree nut Allergy Anaphylaxis Verified 05/08/22 17:19 Sulfa (Sulfonamide AdvReac Rash Verified 05/08/22 17:20 Antibiotics) Assessment & Plan Assessment & Plan (1) Routine medical exam: Status: Acute Code(s): Z00.00 - Encounter for general adult medical examination without abnormal findings Plan Patient is a 26 yo female, uses They/Them pronouns, with hx of refractory, severe depression, PTSD, ECT trials, chronic intermittent SI who presents for ECT for worsening depression, AH, SI.? Patient reports patient was discharged from [facility] about a month ago with the addition of Lyrica which they found helpful for anxiety and reduced their number of panic attacks down from every day to just a few times per week.? Despite this new medication, they remained depressed over these past weeks. -patient eager for ECT and would like help setting up for maintenance ECT -continues to have intermittent SI but no plans or intent and feels safe on the unit 05/10/[address] note med eval and history reviewed patient able to give informed consent would benefit from outpatient and maintenance ECT treatment if possible severe outpatient stressors including possible homelessness I spent minutes with the patient and/or on the patient floor today, greater than?50% of which was spent counseling/coordinating care. Reason for contiued inpatient stay Substantial Risk for: harm to self, inability to function and rapid decompensation
[2022-05-10] MEDS: Prazosin HCL 1 MG CAPSULE 2 MG PO (20:10)
[2022-05-10] MEDS: traZODone HCL 100 MG TABLET 200 MG PO (20:10)
[2022-05-11 06:00] VITALS: BP 108/59; PULSE 81; TEMP 36.7; O2SAT 96
[2022-05-11] MEDS: Pregabalin 200 MG CAPSULE PO ×3 (08:39→21:54)
[2022-05-11] MEDS: LORazepam 1 MG TABLET PO (08:39)
[2022-05-11] MEDS: buPROPion HCl XL 300 MG TAB.ER.24H PO (08:39)
[2022-05-11] MEDS: Sertraline HCL 100 MG TABLET 150 MG PO (08:39)
[2022-05-11] MEDS: buPROPion HCl XL 150 MG TAB.ER.24H PO (08:39)
[2022-05-11] MEDS: metFORMIN HCl 500 MG TABLET PO ×2 (08:40→16:43)
[2022-05-11] MEDS: Nicotine Polacrilex 2 MG GUM BUCCAL ×3 (11:49→21:55)
--- NOTE | 2022-05-11 13:03 | HO.PSYCHPN ---
Subjective Subjective Date of Service: 05/11/22 Reason For Visit: SI Interim History: Patient reports she is depressed, tearful. She said she woke up a little confused this morning and a little funky which he thinks is because of the ECT. Patient says she has not been thinking about suicidal ideation since she is dealing with a whole lot of other things. Patient explained that her boyfriend/partner is likely going to move in with his parents unless they get housing together and if he does she is not able to join. After 7 years together, she is feeling a little startled by this decision of his. She says that he does not understand how severely debilitating her depression is and thinks she is using it as an excuse to get out of contributing her share of the finances. [employer] offered to have boyfriend come in for a family meeting and some education on psychiatric illness; she will see if he is willing. Patient may be able to go and stay with her friend. Patient is faced with possibly having to stop ECT early in order to go back to her apartment and pack up for the move. Mental Status Exam Mental Status Exam Narrative: Pt is alert and oriented; behavior is cooperative, friendly; intermittently tearful; dressed in casual attire with unkempt hair but adequate hygiene; mood is described as depressed and affect congruent, blunted, downcast; minimal eye contact but making effort; Speech is normal rate, volume and prosody and not pressured; psychomotor retardation present; thought process is organized and goal directed; Thought content is on tx, trying to be hopeful; otherwise pertinent to relevant topics and without any delusional content, paranoid ideations or grandiosity; Intermittent SI present; no HI. Intermittent AH present. Patients insight and judgment appear intact. Diagnostics Vital Signs (24Hr): Vital Signs - 24 hr 05/10/22 16:20 05/11/22 06:00 Temperature 97.9 F 98.1 F Pulse Rate 85 81 Respiratory Rate 16 Blood Pressure 85/64 L 108/59 L Pulse Oximetry 99 96 Oxygen Delivery Method Room Air Room Air BMI result Body Mass Index 27.3 Labs Results: 05/09/22 07:57 Labs: Laboratory Results - last 48 hr 05/10/22 08:30 COVID-19 ([facility]) Negative COVID-19 Clin Com See Note Medications Medications Current Medications Acetaminophen (Acetaminophen 325 Mg Tablet) 650 mg PO Q6H PRN PRN Reason: Headache/Pain Mild Scale (1-3) Al Hydroxide/Mg Hydroxide (Magnesium Hydrox/Alum Hydrox 30 Ml Oral.Susp) 30 ml PO Q6H PRN PRN Reason: Heartburn/Nausea Albuterol Sulfate (Albuterol Sulfate 90 Mcg 8 Gm Inhaler) 2 puff INHALE Q6H PRN PRN Reason: Wheezing Bupropion HCl (Bupropion Hcl Xl 300 Mg Tab.Er.24h) 300 mg PO DAILY [facility] Last Admin: 05/11/22 08:39 Dose: 300 mg Bupropion HCl (Bupropion Hcl Xl 150 Mg Tab.Er.24h) 150 mg PO DAILY [facility] Last Admin: 05/11/22 08:39 Dose: 150 mg Hydroxyzine HCl (Hydroxyzine Hcl 25 Mg Tablet) 25 mg PO Q6H PRN PRN Reason: Anxiety Lorazepam (Lorazepam 0.5 Mg Tablet) 0.5 mg PO BID@1500,2100 [facility] Last Admin: 05/10/22 20:10 Dose: 0.5 mg Lorazepam (Lorazepam 1 Mg Tablet) 1 mg PO DAILY [facility] Last Admin: 05/11/22 08:39 Dose: 1 mg Lorazepam (Lorazepam 0.5 Mg Tablet) 0.5 mg PO DAILY PRN PRN Reason: break through anxiety Magnesium Hydroxide (Milk Of Magnesia 30 Ml Oral.Susp) 30 ml PO DAILY PRN PRN Reason: Constipation Melatonin (Melatonin 3 Mg Tablet) 6 mg PO BEDTIME PRN PRN Reason: Insomnia Metformin HCl (Metformin Hcl 500 Mg Tablet) 500 mg PO BIDWM [facility] Last Admin: 05/11/22 08:40 Dose: 500 mg Nicotine (Nicotine 21 Mg Patch.Td24) 21 mg TRANSDERMA DAILY PRN PRN Reason: smoking cessation Nicotine Polacrilex (Nicotine Polacrilex 2 Mg Gum) 2 mg BUCCAL Q1H PRN PRN Reason: Nicotine Cravings Last Admin: 05/11/22 11:49 Dose: 2 mg Prazosin HCl (Prazosin Hcl 1 Mg Capsule) 2 mg PO BEDTIME [facility] Last Admin: 05/10/22 20:10 Dose: 2 mg Pregabalin (Pregabalin 200 Mg Capsule) 200 mg PO TID [facility] Last Admin: 05/11/22 08:39 Dose: 200 mg Sertraline HCl (Sertraline Hcl 100 Mg Tablet) 150 mg PO DAILY [facility] Last Admin: 05/11/22 08:39 Dose: 150 mg Trazodone HCl (Trazodone Hcl 50 Mg Tablet) 50 mg PO BEDTIME PRN PRN Reason: Insomnia Trazodone HCl (Trazodone Hcl 100 Mg Tablet) 200 mg PO BEDTIME [facility] Last Admin: 05/10/22 20:10 Dose: 200 mg Allergies Allergies Allergy/AdvReac Type Severity Reaction Status Date / Time Peanut Butter Allergy Anaphylaxis Verified 05/08/22 17:18 shellfish derived Allergy Swelling Verified 05/08/22 17:20 tree nut Allergy Anaphylaxis Verified 05/08/22 17:19 Sulfa (Sulfonamide AdvReac Rash Verified 05/08/22 17:20 Antibiotics) Assessment & Plan Assessment & Plan (1) Routine medical exam: Status: Acute Code(s): Z00.00 - Encounter for general adult medical examination without abnormal findings Plan Patient is a 26 yo female, uses They/Them pronouns, with hx of refractory, severe depression, PTSD, ECT trials, chronic intermittent SI who presents for ECT for worsening depression, AH, SI.? Patient reports patient was discharged from [facility] about a month ago with the addition of Lyrica which they found helpful for anxiety and reduced their number of panic attacks down from every day to just a few times per week.? Despite this new medication, they remained depressed over these past weeks. -patient eager for ECT and would like help setting up for maintenance ECT -continues to have intermittent SI but no plans or intent and feels safe on the unit PLAN: CV Q 15 minute checks ECT #1 on 05/10/22 ECT #2 PENDING for 05/13 npo aftermidnight Continue home medications for now Patient reports that Zoloft has been helpful; has never been on a higher dose; will consider increasing Consult placed for ECT clearance; EKG ordered for ECT clearance Patient educated on: diagnosis, medication risk/benefits, substance abuse and therapeutic strategies Informed Consent: understands I spent minutes with the patient and/or on the patient floor today, greater than?50% of which was spent counseling/coordinating care. Patient educated on: diagnosis and ECT Informed Consent: understands Reason for contiued inpatient stay Substantial Risk for: inability to function and rapid decompensation
[2022-05-11] MEDS: LORazepam 0.5 MG TABLET PO ×3 (14:45→21:54)
[2022-05-11 18:00] VITALS: BP 137/79; PULSE 92; RESP 18; TEMP 36.1; O2SAT 97
[2022-05-11] MEDS: Prazosin HCL 1 MG CAPSULE 2 MG PO (21:54)
[2022-05-11] MEDS: traZODone HCL 100 MG TABLET 200 MG PO (21:55)
[2022-05-12 06:00] VITALS: BP 100/52; PULSE 90; TEMP 36.3; O2SAT 97
[2022-05-12] MEDS: buPROPion HCl XL 150 MG TAB.ER.24H PO (09:03)
[2022-05-12] MEDS: metFORMIN HCl 500 MG TABLET PO ×2 (09:03→17:19)
[2022-05-12] MEDS: buPROPion HCl XL 300 MG TAB.ER.24H PO (09:03)
[2022-05-12] MEDS: Pregabalin 200 MG CAPSULE PO ×3 (09:03→21:17)
[2022-05-12] MEDS: Sertraline HCL 100 MG TABLET 150 MG PO (09:04)
[2022-05-12] MEDS: LORazepam 1 MG TABLET PO (09:05)
--- NOTE | 2022-05-12 12:17 | P.PNPSI_ITS ---
Subjective Subjective Date of Service: 05/12/22 Reason For Visit: SI Interim History: Remains very depressed. However patient is worried about her housing situation and wants to discharge by Friday even though she will not complete ECT trial. She says I need to discharged to take care of my disaster of a life... She denies SI saying she is to focused on figuring her housing situation out to even thinking about SI. Fingers she will most likely end up living with her friend. Mental Status Exam Mental Status Exam Narrative: Pt is alert and oriented; behavior is cooperative; dressed in casual attire with unkempt hair but adequate hygiene; mood is described as depressed and affect congruent, blunted, downcast; minimal eye contact but making effort; Speech is normal rate, volume and prosody and not pressured; some psychomotor retardation present; thought process is organized and goal directed; Thought content is on tx, trying to be hopeful, managing pending homelessness; otherwise pertinent to relevant topics and without any delusional content, paranoid ideations or grandiosity; No SI; no HI. no AH. Patients insight and judgment appear intact. Diagnostics Vital Signs (24Hr): Vital Signs - 24 hr 05/11/22 18:00 05/12/22 06:00 Temperature 96.9 F 97.4 F Pulse Rate 92 90 Respiratory Rate 18 Blood Pressure 137/79 100/52 L Pulse Oximetry 97 97 Oxygen Delivery Method Room Air Room Air BMI result Body Mass Index 27.3 Labs Results: 05/09/22 07:57 Medications Medications Current Medications Acetaminophen (Acetaminophen 325 Mg Tablet) 650 mg PO Q6H PRN PRN Reason: Headache/Pain Mild Scale (1-3) Al Hydroxide/Mg Hydroxide (Magnesium Hydrox/Alum Hydrox 30 Ml Oral.Susp) 30 ml PO Q6H PRN PRN Reason: Heartburn/Nausea Albuterol Sulfate (Albuterol Sulfate 90 Mcg 8 Gm Inhaler) 2 puff INHALE Q6H PRN PRN Reason: Wheezing Bupropion HCl (Bupropion Hcl Xl 300 Mg Tab.Er.24h) 300 mg PO DAILY [facility] Last Admin: 05/12/22 09:03 Dose: 300 mg Bupropion HCl (Bupropion Hcl Xl 150 Mg Tab.Er.24h) 150 mg PO DAILY [facility] Last Admin: 05/12/22 09:03 Dose: 150 mg Hydroxyzine HCl (Hydroxyzine Hcl 25 Mg Tablet) 25 mg PO Q6H PRN PRN Reason: Anxiety Lorazepam (Lorazepam 0.5 Mg Tablet) 0.5 mg PO BID@1500,2100 [facility] Last Admin: 05/11/22 21:54 Dose: 0.5 mg Lorazepam (Lorazepam 1 Mg Tablet) 1 mg PO DAILY [facility] Last Admin: 05/12/22 09:05 Dose: 1 mg Lorazepam (Lorazepam 0.5 Mg Tablet) 0.5 mg PO DAILY PRN PRN Reason: break through anxiety Last Admin: 05/11/22 16:43 Dose: 0.5 mg Magnesium Hydroxide (Milk Of Magnesia 30 Ml Oral.Susp) 30 ml PO DAILY PRN PRN Reason: Constipation Melatonin (Melatonin 3 Mg Tablet) 6 mg PO BEDTIME PRN PRN Reason: Insomnia Metformin HCl (Metformin Hcl 500 Mg Tablet) 500 mg PO BIDWM [facility] Last Admin: 05/12/22 09:03 Dose: 500 mg Nicotine (Nicotine 21 Mg Patch.Td24) 21 mg TRANSDERMA DAILY PRN PRN Reason: smoking cessation Nicotine Polacrilex (Nicotine Polacrilex 2 Mg Gum) 2 mg BUCCAL Q1H PRN PRN Reason: Nicotine Cravings Last Admin: 05/11/22 21:55 Dose: 2 mg Prazosin HCl (Prazosin Hcl 1 Mg Capsule) 2 mg PO BEDTIME [facility] Last Admin: 05/11/22 21:54 Dose: 2 mg Pregabalin (Pregabalin 200 Mg Capsule) 200 mg PO TID [facility] Last Admin: 05/12/22 09:03 Dose: 200 mg Sertraline HCl (Sertraline Hcl 100 Mg Tablet) 150 mg PO DAILY [facility] Last Admin: 05/12/22 09:04 Dose: 150 mg Trazodone HCl (Trazodone Hcl 50 Mg Tablet) 50 mg PO BEDTIME PRN PRN Reason: Insomnia Trazodone HCl (Trazodone Hcl 100 Mg Tablet) 200 mg PO BEDTIME [facility] Last Admin: 05/11/22 21:55 Dose: 200 mg Allergies Allergies Allergy/AdvReac Type Severity Reaction Status Date / Time Peanut Butter Allergy Anaphylaxis Verified 05/08/22 17:18 shellfish derived Allergy Swelling Verified 05/08/22 17:20 tree nut Allergy Anaphylaxis Verified 05/08/22 17:19 Sulfa (Sulfonamide AdvReac Rash Verified 05/08/22 17:20 Antibiotics) Assessment & Plan Assessment & Plan (1) Routine medical exam: Status: Acute Code(s): Z00.00 - Encounter for general adult medical examination without abnormal findings Plan Patient is a 26 yo female, uses They/Them pronouns, with hx of refractory, severe depression, PTSD, ECT trials, chronic intermittent SI who presents for ECT for worsening depression, AH, SI.? Patient reports patient was discharged from [facility] about a month ago with the addition of Lyrica which they found helpful for anxiety and reduced their number of panic attacks down from every day to just a few times per week.? Despite this new medication, they remained depressed over these past weeks. -patient eager for ECT and would like help setting up for maintenance ECT -continues to have intermittent SI but no plans or intent and feels safe on the unit 05/12 depression remains but no SI. Patient wants to stay on the unit for continued ECT, however feels the need to discharge Friday to take care of her housing situation as she has to move all of her stuff out. PLAN: CV Q 15 minute checks ECT #1 on 05/10/22 ECT #2 PENDING for 05/13 npo aftermidnight Continue home medications for now Patient reports that Zoloft has been helpful; has never been on a higher dose; will consider increasing Consult placed for ECT clearance; EKG ordered for ECT clearance Patient educated on: diagnosis, medication risk/benefits, substance abuse and therapeutic strategies Informed Consent: understands I spent minutes with the patient and/or on the patient floor today, greater than?50% of which was spent counseling/coordinating care. Patient educated on: diagnosis and ECT Informed Consent: understands Reason for contiued inpatient stay Substantial Risk for: med/psych decompensation
[2022-05-12] MEDS: LORazepam 0.5 MG TABLET PO ×3 (14:14→21:16)
[2022-05-12 18:00] VITALS: BP 123/75; PULSE 94; RESP 18; TEMP 35.7; O2SAT 97
[2022-05-12] MEDS: Nicotine Polacrilex 2 MG GUM BUCCAL (18:13)
[2022-05-12] MEDS: Prazosin HCL 1 MG CAPSULE 2 MG PO (21:16)
[2022-05-12] MEDS: traZODone HCL 100 MG TABLET 200 MG PO (21:16)
[2022-05-13] VITALS (11 sets, daily range): BP systolic 100–112; BP diastolic 51–73; PULSE 68–102; RESP 16–25; TEMP 35.8–37; O2SAT 95–98
--- NOTE | 2022-05-13 06:58 | P.CONAN_ITS ---
FORM[facility]LY [facility], LATER [facility] Active Problems Active Problems: All Active Problems (Updated 05/09/22 @ 16:09 by Richardson Willis MD) Routine medical exam (Acute) Alcohol use disorder, moderate, in sustained remission, dependence (Acute) Panic disorder (Acute) Chronic post-traumatic stress disorder (PTSD) (Acute) MDD (major depressive disorder), recurrent, severe, with psychosis (Acute) Past Medical History Medical History (Updated 05/09/22 @ 16:09 by Richardson Willis MD) Alcohol use disorder, moderate, in sustained remission, dependence Chronic post-traumatic stress disorder (PTSD) MDD (major depressive disorder), recurrent, severe, with psychosis Panic disorder Family History Family history of problems with anesthesia: No Surgical History History of Problems with Anesthesia: No Social History Social History Household Members: Significant Other Housing: Apartment Do you presently have visiting nurse or other home services: No Patient Tobacco Use Status: Current someday Tobacco user Tobacco use type: Cigarette Cigarettes Per Day: 2 Years Smoked: 10 Smoked in Last 30 Days: Yes e-Cigarette/Vaping Use: Currently Using Frequency of e-Cigarette/Vaping Use: 5 or 6 times daily if available as a treat Patient Interested in Nicotine Replacement: Yes (Pt would like Nicotine gum) Patient Given Instructions on How to Stop Smoking: Yes Date Education Initiated: 05/08/22 Second Hand Smoke Exposure: Yes Use of substances other than those prescribed or required for medical reasons: No Currently Displaying Signs/Symptoms of Drug Intoxication Withdrawal: No Any prior treatment program specific to substance use: Yes ([place] in 2020) Have you been hit, kicked, punched, or otherwise hurt by someone within the past year? If so, by whom?: No Do you feel safe in your current relationship?: Yes Is there a partner from a previous relationship who is making you feel unsafe now?: No Are you made to feel afraid or neglected: No Spiritual Healthcare Practices: None Buddhist Healthcare Practices: None Cultural Healthcare Practices: None Are you DNR?: No Advance Directives: No Advance Directives Information Provided: No Advance Directives on File: No Do you have thoughts of harming others: None Do you have a plan to hurt others: No Plan Recently lost weight without trying: No Eating poorly because of decreased appetite: Yes Nutrition Risks: No Nutritional Risk Patient : No : No Poor oral hygiene: Yes service: No Sexual orientation: Did not discuss Meds Allergies Allergy/AdvReac Type Severity Reaction Status Date / Time Peanut Butter Allergy Anaphylaxis Verified 05/08/22 17:18 shellfish derived Allergy Swelling Verified 05/08/22 17:20 tree nut Allergy Anaphylaxis Verified 05/08/22 17:19 Sulfa (Sulfonamide AdvReac Rash Verified 05/08/22 17:20 Antibiotics) Active Medications: Current Medications Acetaminophen (Acetaminophen 325 Mg Tablet) 650 mg PO Q6H PRN PRN Reason: Headache/Pain Mild Scale (1-3) Al Hydroxide/Mg Hydroxide (Magnesium Hydrox/Alum Hydrox 30 Ml Oral.Susp) 30 ml PO Q6H PRN PRN Reason: Heartburn/Nausea Albuterol Sulfate (Albuterol Sulfate 90 Mcg 8 Gm Inhaler) 2 puff INHALE Q6H PRN PRN Reason: Wheezing Bupropion HCl (Bupropion Hcl Xl 300 Mg Tab.Er.24h) 300 mg PO DAILY [facility] Last Admin: 05/12/22 09:03 Dose: 300 mg Bupropion HCl (Bupropion Hcl Xl 150 Mg Tab.Er.24h) 150 mg PO DAILY [facility] Last Admin: 05/12/22 09:03 Dose: 150 mg Hydroxyzine HCl (Hydroxyzine Hcl 25 Mg Tablet) 25 mg PO Q6H PRN PRN Reason: Anxiety Lorazepam (Lorazepam 0.5 Mg Tablet) 0.5 mg PO BID@1500,2100 [facility] Last Admin: 05/12/22 21:16 Dose: 0.5 mg Lorazepam (Lorazepam 1 Mg Tablet) 1 mg PO DAILY [facility] Last Admin: 05/12/22 09:05 Dose: 1 mg Lorazepam (Lorazepam 0.5 Mg Tablet) 0.5 mg PO DAILY PRN PRN Reason: break through anxiety Last Admin: 05/12/22 18:32 Dose: 0.5 mg Magnesium Hydroxide (Milk Of Magnesia 30 Ml Oral.Susp) 30 ml PO DAILY PRN PRN Reason: Constipation Melatonin (Melatonin 3 Mg Tablet) 6 mg PO BEDTIME PRN PRN Reason: Insomnia Metformin HCl (Metformin Hcl 500 Mg Tablet) 500 mg PO BIDWM [facility] Last Admin: 05/12/22 17:19 Dose: 500 mg Nicotine (Nicotine 21 Mg Patch.Td24) 21 mg TRANSDERMA DAILY PRN PRN Reason: smoking cessation Nicotine Polacrilex (Nicotine Polacrilex 2 Mg Gum) 2 mg BUCCAL Q1H PRN PRN Reason: Nicotine Cravings Last Admin: 05/12/22 18:13 Dose: 2 mg Prazosin HCl (Prazosin Hcl 1 Mg Capsule) 2 mg PO BEDTIME [facility] Last Admin: 05/12/22 21:16 Dose: 2 mg Pregabalin (Pregabalin 200 Mg Capsule) 200 mg PO TID [facility] Last Admin: 05/12/22 21:17 Dose: 200 mg Sertraline HCl (Sertraline Hcl 100 Mg Tablet) 150 mg PO DAILY [facility] Last Admin: 05/12/22 09:04 Dose: 150 mg Trazodone HCl (Trazodone Hcl 50 Mg Tablet) 50 mg PO BEDTIME PRN PRN Reason: Insomnia Trazodone HCl (Trazodone Hcl 100 Mg Tablet) 200 mg PO BEDTIME [facility] Last Admin: 05/12/22 21:16 Dose: 200 mg Home Medications Medication Instructions Recorded Confirmed Last Taken Type Ativan 0.5 mg PO BID@1500,2100 05/08/22 05/08/22 Unknown History Ativan 1 mg PO DAILY 05/08/22 05/08/22 Unknown History Lyrica 200 mg PO TID 05/08/22 05/08/22 Unknown History Wellbutrin SR 450 mg PO DAILY 05/08/22 05/08/22 Unknown History albuterol sulfate 90 mcg/actuation 2 inh inhalation Q6H PRN Wheezing 05/08/22 05/08/22 Unknown History aerosol inhaler (ProAir HFA) melatonin 5 mg PO BEDTIME PRN Insomnia 05/08/22 05/08/22 Unknown History metformin 500 mg PO BID 05/08/22 05/08/22 05/08/22 07:00 History prazosin 2 mg PO BEDTIME 05/08/22 05/08/22 05/07/22 20:54 History 2 mg sertraline 150 mg PO DAILY 05/08/22 05/08/22 05/08/22 08:16 History topiramate 50 mg PO BID 05/08/22 05/08/22 05/08/22 08:16 History 50 mg trazodone 200 mg PO BEDTIME 05/08/22 05/08/22 05/07/22 20:54 History 200 mg Exam Exam Date and Time: May 13, [id number] Height,Weight and Vital Signs: Height 5 ft 8 in Weight 81.647 kg Last Vital Signs Temp 98.6 F 05/13/22 06:48 Pulse 90 05/13/22 06:48 Resp 20 05/13/22 06:48 BP 111/64 05/13/22 06:48 Pulse Ox 97 05/13/22 06:48 O2 Del Method 05/13/22 06:48 O2 Flow Rate 2 05/10/22 10:50 Pertinent Lab Results Pertinent Lab Results: Laboratory Tests 05/09/22 05/09/22 05/09/22 07:57 07:57 07:57 Sodium 139 Potassium 4.4 Chloride 110 H Carbon Dioxide 22 Anion Gap 11 L BUN 16 Creatinine 0.94 Estim Creat Clear Calc 100.7 Estimated GFR > 60 Fasting Glucose 76 Estimat Average Glucose 97 Hemoglobin A1c % 5.0 Calcium 8.8 Total Bilirubin 0.3 AST 21 ALT 33 H Alkaline Phosphatase 75 Total Protein 7.0 Albumin 4.4 Triglycerides 83 Cholesterol 196 LDL Cholesterol, Calc 133 HDL Cholesterol 47 Vitamin B12 358 Folate 15.9 TSH 1.65 COVID-19 ([facility]) COVID-19 Clin Com 05/10/22 08:30 Sodium Potassium Chloride Carbon Dioxide Anion Gap BUN Creatinine Estim Creat Clear Calc Estimated GFR Fasting Glucose Estimat Average Glucose Hemoglobin A1c % Calcium Total Bilirubin AST ALT Alkaline Phosphatase Total Protein Albumin Triglycerides Cholesterol LDL Cholesterol, Calc HDL Cholesterol Vitamin B12 Folate TSH COVID-19 ([facility]) Negative COVID-19 Clin Com See Note Airway Mallampati Class: II TM Dist: >3cm Neck ROM: Full Assessment and Plan Assessment Anesthesia Assessment: Anesthesia Plan Discussed, Smoking Cess. Discussed and Chart Reviewed Final Anesthetic Review Family History of Problems with Anesthesia: No History of Problems with Anesthesia: No NPO: Yes ASA Class: II Final Preanesthetic Review: No Changes in Pt Med Stat, Meds/Allgs Chart Reviewed, Consent Obtained/Reviewed and Anes Risks/Benef Reviewed Patient Risk: Intermediate Procedure Risk: Intermediate Anesthetic Plan Anesthetic Plan: GA Disposition: Standard PACU
--- NOTE | 2022-05-13 07:09 | MHC.SHP ---
Pre-Procedural Eval Section A Date of Service: 05/13/22 The patient is an INPATIENT: No Changes since office visit: No Cold of Flu in the past 2 weeks, No New Medical Problems, No Changes in Medication and No Patient answered all questions The History & Physical has been completed within 30 days and I have reviewed it.: Yes Section B Chief Complaint: SI Allergies: Allergies Allergy/AdvReac Type Severity Reaction Status Date / Time Peanut Butter Allergy Anaphylaxis Verified 05/08/22 17:18 shellfish derived Allergy Swelling Verified 05/08/22 17:20 tree nut Allergy Anaphylaxis Verified 05/08/22 17:19 Sulfa (Sulfonamide AdvReac Rash Verified 05/08/22 17:20 Antibiotics) Plan I have reviewed the history and physical and performed a pertinent physical examination on my patient. No changes have occurred unless specified.
--- NOTE | 2022-05-13 07:30 | HO.ECTPROC ---
ECT Procedure Note Diagnosis/Treatment Date of Service: 05/13/22 Diagnosis: Major Depressive Disorder Previous ECT Date: 05/10/22 Current Treatment Number: 2 Treatment: Series Interval Clinical Notes: The patient reported no side effects with previous ECT besides mild headache. She reported her mood as slightly better, no active suicidal thoughts. ECT Settings Device: THYMATRON DGx Electrode Placement: Bitemporal Program/Pulse Width: 0.50 Energy Percent: 100 Seizure Duration By EEG (in seconds): 20 By Motor Observation (in seconds): 0 Medications Administration General Anesthetic: Etomidate (16) Muscle Relaxant: Succinylcholine (100) Ancillary Medications Analgesics: Torodol - Pre ECT Anti-emetics: Zofran - Pre ECT Miscillaneous Medications: Flumazenil Airway Management Airway Management: Bag Mask Ventilation Treatment Recommendations No Changes Recommended: No change Pt Tolerated Procedure w/o Issue: Yes
--- NOTE | 2022-05-13 08:12 | P.CONAN_ITS ---
[facility] Active Problems Active Problems: All Active Problems (Updated 05/09/22 @ 16:09 by Richardson Willis MD) Routine medical exam (Acute) Alcohol use disorder, moderate, in sustained remission, dependence (Acute) Panic disorder (Acute) Chronic post-traumatic stress disorder (PTSD) (Acute) MDD (major depressive disorder), recurrent, severe, with psychosis (Acute) Past Medical History Medical History (Updated 05/09/22 @ 16:09 by Richardson Willis MD) Alcohol use disorder, moderate, in sustained remission, dependence Chronic post-traumatic stress disorder (PTSD) MDD (major depressive disorder), recurrent, severe, with psychosis Panic disorder Family History Family history of problems with anesthesia: No Surgical History History of Problems with Anesthesia: No Social History Social History Household Members: Significant Other Housing: Apartment Do you presently have visiting nurse or other home services: No Patient Tobacco Use Status: Current someday Tobacco user Tobacco use type: Cigarette Cigarettes Per Day: 2 Years Smoked: 10 Smoked in Last 30 Days: Yes e-Cigarette/Vaping Use: Currently Using Frequency of e-Cigarette/Vaping Use: 5 or 6 times daily if available as a treat Patient Interested in Nicotine Replacement: Yes (Pt would like Nicotine gum) Patient Given Instructions on How to Stop Smoking: Yes Date Education Initiated: 05/08/22 Second Hand Smoke Exposure: Yes Use of substances other than those prescribed or required for medical reasons: No Currently Displaying Signs/Symptoms of Drug Intoxication Withdrawal: No Any prior treatment program specific to substance use: Yes ([place] in 2020) Have you been hit, kicked, punched, or otherwise hurt by someone within the past year? If so, by whom?: No Do you feel safe in your current relationship?: Yes Is there a partner from a previous relationship who is making you feel unsafe now?: No Are you made to feel afraid or neglected: No Spiritual Healthcare Practices: None Evangelical Healthcare Practices: None Cultural Healthcare Practices: None Are you DNR?: No Advance Directives: No Advance Directives Information Provided: No Advance Directives on File: No Do you have thoughts of harming others: None Do you have a plan to hurt others: No Plan Recently lost weight without trying: No Eating poorly because of decreased appetite: Yes Nutrition Risks: No Nutritional Risk Patient : No : No Poor oral hygiene: Yes service: No Sexual orientation: Did not discuss Meds Allergies Allergy/AdvReac Type Severity Reaction Status Date / Time Peanut Butter Allergy Anaphylaxis Verified 05/08/22 17:18 shellfish derived Allergy Swelling Verified 05/08/22 17:20 tree nut Allergy Anaphylaxis Verified 05/08/22 17:19 Sulfa (Sulfonamide AdvReac Rash Verified 05/08/22 17:20 Antibiotics) Active Medications: Current Medications Acetaminophen (Acetaminophen 325 Mg Tablet) 650 mg PO Q6H PRN PRN Reason: Headache/Pain Mild Scale (1-3) Acetaminophen (Acetaminophen 325 Mg Tablet) 650 mg PO ONCE PRN PRN Reason: Pain, Mild (Pain Scale 1-3) Al Hydroxide/Mg Hydroxide (Magnesium Hydrox/Alum Hydrox 30 Ml Oral.Susp) 30 ml PO Q6H PRN PRN Reason: Heartburn/Nausea Albuterol Sulfate (Albuterol Sulfate 90 Mcg 8 Gm Inhaler) 2 puff INHALE Q6H PRN PRN Reason: Wheezing Bupropion HCl (Bupropion Hcl Xl 300 Mg Tab.Er.24h) 300 mg PO DAILY [facility] Last Admin: 05/12/22 09:03 Dose: 300 mg Bupropion HCl (Bupropion Hcl Xl 150 Mg Tab.Er.24h) 150 mg PO DAILY [facility] Last Admin: 05/12/22 09:03 Dose: 150 mg Hydroxyzine HCl (Hydroxyzine Hcl 25 Mg Tablet) 25 mg PO Q6H PRN PRN Reason: Anxiety Lorazepam (Lorazepam 0.5 Mg Tablet) 0.5 mg PO BID@1500,2100 [facility] Last Admin: 05/12/22 21:16 Dose: 0.5 mg Lorazepam (Lorazepam 1 Mg Tablet) 1 mg PO DAILY [facility] Last Admin: 05/12/22 09:05 Dose: 1 mg Lorazepam (Lorazepam 0.5 Mg Tablet) 0.5 mg PO DAILY PRN PRN Reason: break through anxiety Last Admin: 05/12/22 18:32 Dose: 0.5 mg Magnesium Hydroxide (Milk Of Magnesia 30 Ml Oral.Susp) 30 ml PO DAILY PRN PRN Reason: Constipation Melatonin (Melatonin 3 Mg Tablet) 6 mg PO BEDTIME PRN PRN Reason: Insomnia Metformin HCl (Metformin Hcl 500 Mg Tablet) 500 mg PO BIDWM [facility] Last Admin: 05/12/22 17:19 Dose: 500 mg Nicotine (Nicotine 21 Mg Patch.Td24) 21 mg TRANSDERMA DAILY PRN PRN Reason: smoking cessation Nicotine Polacrilex (Nicotine Polacrilex 2 Mg Gum) 2 mg BUCCAL Q1H PRN PRN Reason: Nicotine Cravings Last Admin: 05/12/22 18:13 Dose: 2 mg Ondansetron HCl (Ondansetron Hcl 4 Mg/2 Ml Vial) 4 mg IVPUSH ONCE PRN PRN Reason: Nausea and Vomiting Prazosin HCl (Prazosin Hcl 1 Mg Capsule) 2 mg PO BEDTIME [facility] Last Admin: 05/12/22 21:16 Dose: 2 mg Pregabalin (Pregabalin 200 Mg Capsule) 200 mg PO TID [facility] Last Admin: 05/12/22 21:17 Dose: 200 mg Sertraline HCl (Sertraline Hcl 100 Mg Tablet) 150 mg PO DAILY [facility] Last Admin: 05/12/22 09:04 Dose: 150 mg Trazodone HCl (Trazodone Hcl 50 Mg Tablet) 50 mg PO BEDTIME PRN PRN Reason: Insomnia Trazodone HCl (Trazodone Hcl 100 Mg Tablet) 200 mg PO BEDTIME [facility] Last Admin: 05/12/22 21:16 Dose: 200 mg Home Medications Medication Instructions Recorded Confirmed Last Taken Type Ativan 0.5 mg PO BID@1500,2100 05/08/22 05/08/22 Unknown History Ativan 1 mg PO DAILY 05/08/22 05/08/22 Unknown History Lyrica 200 mg PO TID 05/08/22 05/08/22 Unknown History Wellbutrin SR 450 mg PO DAILY 05/08/22 05/08/22 Unknown History albuterol sulfate 90 mcg/actuation 2 inh inhalation Q6H PRN Wheezing 05/08/22 05/08/22 Unknown History aerosol inhaler (ProAir HFA) melatonin 5 mg PO BEDTIME PRN Insomnia 05/08/22 05/08/22 Unknown History metformin 500 mg PO BID 05/08/22 05/08/22 05/08/22 07:00 History prazosin 2 mg PO BEDTIME 05/08/22 05/08/22 05/07/22 20:54 History 2 mg sertraline 150 mg PO DAILY 05/08/22 05/08/22 05/08/22 08:16 History topiramate 50 mg PO BID 05/08/22 05/08/22 05/08/22 08:16 History 50 mg trazodone 200 mg PO BEDTIME 05/08/22 05/08/22 05/07/22 20:54 History 200 mg Exam Exam Date and Time: May 13, [id number] Height,Weight and Vital Signs: Height 5 ft 8 in Weight 81.647 kg Last Vital Signs Temp 97.9 F 05/13/22 07:43 Pulse 78 05/13/22 07:43 Resp 25 H 05/13/22 07:43 BP 100/65 05/13/22 07:43 Pulse Ox 98 05/13/22 07:43 O2 Del Method 05/13/22 07:43 O2 Flow Rate 3 05/13/22 07:43 Pertinent Lab Results Pertinent Lab Results: Laboratory Tests 05/09/22 05/09/22 05/09/22 07:57 07:57 07:57 Sodium 139 Potassium 4.4 Chloride 110 H Carbon Dioxide 22 Anion Gap 11 L BUN 16 Creatinine 0.94 Estim Creat Clear Calc 100.7 Estimated GFR > 60 Fasting Glucose 76 Estimat Average Glucose 97 Hemoglobin A1c % 5.0 Calcium 8.8 Total Bilirubin 0.3 AST 21 ALT 33 H Alkaline Phosphatase 75 Total Protein 7.0 Albumin 4.4 Triglycerides 83 Cholesterol 196 LDL Cholesterol, Calc 133 HDL Cholesterol 47 Vitamin B12 358 Folate 15.9 TSH 1.65 COVID-19 ([facility]) COVID-19 Clin Com 05/10/22 08:30 Sodium Potassium Chloride Carbon Dioxide Anion Gap BUN Creatinine Estim Creat Clear Calc Estimated GFR Fasting Glucose Estimat Average Glucose Hemoglobin A1c % Calcium Total Bilirubin AST ALT Alkaline Phosphatase Total Protein Albumin Triglycerides Cholesterol LDL Cholesterol, Calc HDL Cholesterol Vitamin B12 Folate TSH COVID-19 ([facility]) Negative COVID-19 Clin Com See Note Airway Mallampati Class: III TM Dist: >3cm Neck ROM: Limited Loose/Missing/Broken Teeth: Yes, Upper and Lower Assessment and Plan Assessment Anesthesia Assessment: Anesthesia Plan Discussed and Chart Reviewed Final Anesthetic Review Family History of Problems with Anesthesia: No History of Problems with Anesthesia: No NPO: Yes ASA Class: III Final Preanesthetic Review: No Changes in Pt Med Stat, Meds/Allgs Chart Reviewed, Consent Obtained/Reviewed and Anes Risks/Benef Reviewed Patient Risk: Intermediate Procedure Risk: Intermediate Anesthetic Plan Anesthetic Plan: GA Disposition: Standard PACU
[2022-05-13] MEDS: LORazepam 1 MG TABLET PO ×2 (08:35→08:52)
[2022-05-13] MEDS: Sertraline HCL 100 MG TABLET 150 MG PO (08:51)
[2022-05-13] MEDS: metFORMIN HCl 500 MG TABLET PO ×2 (08:51→17:14)
[2022-05-13] MEDS: Pregabalin 200 MG CAPSULE PO ×2 (08:51→14:10)
[2022-05-13] MEDS: buPROPion HCl XL 150 MG TAB.ER.24H PO (08:52)
[2022-05-13] MEDS: buPROPion HCl XL 300 MG TAB.ER.24H PO (08:52)
--- NOTE | 2022-05-13 10:37 | HO.PSYCHPN ---
Subjective Subjective Date of Service: 05/13/22 Reason For Visit: SI Subjective Notes: Conditional Voluntary Healthcare Proxy: No Guardianship: No Interim History: Patient seen post ECT discussed lowering [place] pt somewhat perplexedpost ect Medication Compliance: No Side effects from medications: No Review of Systems Acute medical concerns: No Mental Status Exam Mental Status Exam Patient Appearance: Well Grooomed Patient Orientation: Person, Place and Situation Level of Consciousness: Awake Patient Behavior: Appropriate Mood Description: Constricted and Blunted Affect Description: Constricted and Depressed Ability to Follow Directions: Good Memory Description: Intact Hallucinations: None Delusions: Not Present Thought Process: Rumination Depressive Symptoms: Increased Anxiety and Difficulty Concentrating Judgement: Good Diagnostics Vital Signs (24Hr): Vital Signs - 24 hr 05/12/22 18:00 05/13/22 06:14 05/13/22 06:00 Temperature 96.3 F L 98.4 F 98.4 F Pulse Rate 94 102 H 102 H Respiratory Rate 18 18 18 Blood Pressure 123/75 105/51 L 105/51 L Pulse Oximetry 97 97 97 Oxygen Delivery Method Room Air Room Air Oxygen Flow Rate 05/13/22 06:48 05/13/22 07:43 05/13/22 07:48 Temperature 98.6 F 97.9 F Pulse Rate 90 78 73 Respiratory Rate 20 25 H 22 H Blood Pressure 111/64 100/65 104/73 Pulse Oximetry 97 98 97 Oxygen Delivery Method Room Air Nasal Cannula Nasal Cannula Oxygen Flow Rate 3 3 05/13/22 07:53 05/13/22 07:58 05/13/22 08:13 Temperature 97.4 F 97.5 F Pulse Rate 74 95 71 Respiratory Rate 19 18 20 Blood Pressure 112/55 L 112/63 106/66 Pulse Oximetry 96 95 96 Oxygen Delivery Method Room Air Room Air Room Air Oxygen Flow Rate 05/13/22 08:37 Temperature Pulse Rate 68 Respiratory Rate 18 Blood Pressure Pulse Oximetry 96 Oxygen Delivery Method Room Air Oxygen Flow Rate BMI result Body Mass Index 27.3 Labs Results: 05/09/22 07:57 Medications Medications Current Medications Acetaminophen (Acetaminophen 325 Mg Tablet) 650 mg PO Q6H PRN PRN Reason: Headache/Pain Mild Scale (1-3) Acetaminophen (Acetaminophen 325 Mg Tablet) 650 mg PO ONCE PRN PRN Reason: Pain, Mild (Pain Scale 1-3) Acetaminophen (Acetaminophen 325 Mg Tablet) 650 mg PO ONCE PRN PRN Reason: Pain, Mild (Pain Scale 1-3) Al Hydroxide/Mg Hydroxide (Magnesium Hydrox/Alum Hydrox 30 Ml Oral.Susp) 30 ml PO Q6H PRN PRN Reason: Heartburn/Nausea Albuterol Sulfate (Albuterol Sulfate 90 Mcg 8 Gm Inhaler) 2 puff INHALE Q6H PRN PRN Reason: Wheezing Bupropion HCl (Bupropion Hcl Xl 300 Mg Tab.Er.24h) 300 mg PO DAILY [facility] Last Admin: 05/13/22 08:52 Dose: 300 mg Bupropion HCl (Bupropion Hcl Xl 150 Mg Tab.Er.24h) 150 mg PO DAILY [facility] Last Admin: 05/13/22 08:52 Dose: 150 mg Hydroxyzine HCl (Hydroxyzine Hcl 25 Mg Tablet) 25 mg PO Q6H PRN PRN Reason: Anxiety Lorazepam (Lorazepam 0.5 Mg Tablet) 0.5 mg PO BID@1500,2100 [facility] Last Admin: 05/12/22 21:16 Dose: 0.5 mg Lorazepam (Lorazepam 1 Mg Tablet) 1 mg PO DAILY [facility] Last Admin: 05/13/22 08:52 Dose: 1 mg Lorazepam (Lorazepam 0.5 Mg Tablet) 0.5 mg PO DAILY PRN PRN Reason: break through anxiety Last Admin: 05/12/22 18:32 Dose: 0.5 mg Magnesium Hydroxide (Milk Of Magnesia 30 Ml Oral.Susp) 30 ml PO DAILY PRN PRN Reason: Constipation Melatonin (Melatonin 3 Mg Tablet) 6 mg PO BEDTIME PRN PRN Reason: Insomnia Metformin HCl (Metformin Hcl 500 Mg Tablet) 500 mg PO BIDWM [facility] Last Admin: 05/13/22 08:51 Dose: 500 mg Nicotine (Nicotine 21 Mg Patch.Td24) 21 mg TRANSDERMA DAILY PRN PRN Reason: smoking cessation Nicotine Polacrilex (Nicotine Polacrilex 2 Mg Gum) 2 mg BUCCAL Q1H PRN PRN Reason: Nicotine Cravings Last Admin: 05/12/22 18:13 Dose: 2 mg Ondansetron HCl (Ondansetron Hcl 4 Mg/2 Ml Vial) 4 mg IVPUSH ONCE PRN PRN Reason: Nausea and Vomiting Ondansetron HCl (Ondansetron Hcl 4 Mg/2 Ml Vial) 4 mg IVPUSH ONCE PRN PRN Reason: Nausea and Vomiting Prazosin HCl (Prazosin Hcl 1 Mg Capsule) 2 mg PO BEDTIME [facility] Last Admin: 05/12/22 21:16 Dose: 2 mg Pregabalin (Pregabalin 200 Mg Capsule) 200 mg PO TID [facility] Last Admin: 05/13/22 08:51 Dose: 200 mg Sertraline HCl (Sertraline Hcl 100 Mg Tablet) 150 mg PO DAILY [facility] Last Admin: 05/13/22 08:51 Dose: 150 mg Trazodone HCl (Trazodone Hcl 50 Mg Tablet) 50 mg PO BEDTIME PRN PRN Reason: Insomnia Trazodone HCl (Trazodone Hcl 100 Mg Tablet) 200 mg PO BEDTIME [facility] Last Admin: 05/12/22 21:16 Dose: 200 mg Allergies Allergies Allergy/AdvReac Type Severity Reaction Status Date / Time Peanut Butter Allergy Anaphylaxis Verified 05/08/22 17:18 shellfish derived Allergy Swelling Verified 05/08/22 17:20 tree nut Allergy Anaphylaxis Verified 05/08/22 17:19 Sulfa (Sulfonamide AdvReac Rash Verified 05/08/22 17:20 Antibiotics) Assessment & Plan Assessment & Plan (1) Routine medical exam: Status: Acute Code(s): Z00.00 - Encounter for general adult medical examination without abnormal findings Plan Patient is a 26 yo female, uses They/Them pronouns, with hx of refractory, severe depression, PTSD, ECT trials, chronic intermittent SI who presents for ECT for worsening depression, AH, SI.? Patient reports patient was discharged from [facility] about a month ago with the addition of Lyrica which they found helpful for anxiety and reduced their number of panic attacks down from every day to just a few times per week.? Despite this new medication, they remained depressed over these past weeks. -patient eager for ECT and would like help setting up for maintenance ECT -continues to have intermittent SI but no plans or intent and feels safe on the unit 05/10/[address] note med eval and history reviewed patient able to give informed consent would benefit from outpatient and maintenance ECT treatment if possible severe outpatient stressors including possible homelessness 05/13/2022 Patient seen in psychiatric follow-up see ECT note. Patient mood is depressed but stable. Some disorientation post ECT may change the right temporal left frontal discussed with patient. Lower Lyrica to 100 mg t.i.d. I spent minutes with the patient and/or on the patient floor today, greater than?50% of which was spent counseling/coordinating care. Reason for contiued inpatient stay Substantial Risk for: inability to function and rapid decompensation
[2022-05-13] MEDS: LORazepam 0.5 MG TABLET PO ×3 (14:10→20:33)
[2022-05-13] MEDS: Prazosin HCL 1 MG CAPSULE 2 MG PO (20:32)
[2022-05-13] MEDS: Pregabalin 100 MG CAPSULE PO (20:33)
[2022-05-13] MEDS: traZODone HCL 100 MG TABLET 200 MG PO (20:33)
[2022-05-14 06:00] VITALS: BP 110/64; PULSE 79; RESP 18; TEMP 36.4; O2SAT 96
[2022-05-14] MEDS: buPROPion HCl XL 300 MG TAB.ER.24H PO (09:16)
[2022-05-14] MEDS: Sertraline HCL 100 MG TABLET 150 MG PO (09:16)
[2022-05-14] MEDS: metFORMIN HCl 500 MG TABLET PO ×2 (09:17→16:28)
[2022-05-14] MEDS: buPROPion HCl XL 150 MG TAB.ER.24H PO (09:17)
[2022-05-14] MEDS: Pregabalin 100 MG CAPSULE PO ×2 (09:17→14:21)
[2022-05-14] MEDS: LORazepam 0.5 MG TABLET PO ×3 (10:23→21:26)
[2022-05-14] MEDS: Nicotine Polacrilex 2 MG GUM BUCCAL (16:29)
[2022-05-14 18:00] VITALS: BP 129/99; PULSE 75; RESP 20; TEMP 37.2; O2SAT 99
[2022-05-14 18:18] LABS: Glucose, Whole Blood 75 mg/dL (60-115)
[2022-05-14] MEDS: traZODone HCL 100 MG TABLET 200 MG PO (21:26)
[2022-05-14] MEDS: Prazosin HCL 1 MG CAPSULE 2 MG PO (21:26)
[2022-05-15] VITALS (9 sets, daily range): BP systolic 102–143; BP diastolic 61–78; PULSE 63–109; RESP 16–19; TEMP 36–37.2; O2SAT 93–97
--- NOTE | 2022-05-15 07:36 | MHC.SHP ---
Pre-Procedural Eval Section A Date of Service: 05/15/22 Changes since office visit: Yes Patient answered all questions; No Cold of Flu in the past 2 weeks, No New Medical Problems and No Changes in Medication The History & Physical has been completed within 30 days and I have reviewed it.: Yes Section B Chief Complaint: SI Allergies: Allergies Allergy/AdvReac Type Severity Reaction Status Date / Time Peanut Butter Allergy Anaphylaxis Verified 05/08/22 17:18 shellfish derived Allergy Swelling Verified 05/08/22 17:20 tree nut Allergy Anaphylaxis Verified 05/08/22 17:19 Sulfa (Sulfonamide AdvReac Rash Verified 05/08/22 17:20 Antibiotics) Plan I have reviewed the history and physical and performed a pertinent physical examination on my patient. No changes have occurred unless specified.
--- NOTE | 2022-05-15 07:37 | HO.ECTPROC ---
ECT Procedure Note Diagnosis/Treatment Date of Service: 05/15/22 Diagnosis: Major Depressive Disorder Current Treatment Number: 4 Treatment: Series Interval Clinical Notes: Patient feels some improvement ECT Settings Device: THYMATRON DGx Electrode Placement: Rt temporal/ Lt frontal Program/Pulse Width: 0.50 Energy Percent: 100 Seizure Duration By EEG (in seconds): 48 Medications Administration General Anesthetic: Etomidate (16) Muscle Relaxant: Succinylcholine (100) and Rocuronium (5) Ancillary Medications Analgesics: Torodol - Pre ECT Anti-emetics: Zofran - Pre ECT Airway Management Airway Management: Bag Mask Ventilation Treatment Recommendations No Changes Recommended: No change Notes: rocuronium 5 mg
[2022-05-15] MEDS: buPROPion HCl XL 150 MG TAB.ER.24H PO (09:07)
[2022-05-15] MEDS: Pregabalin 100 MG CAPSULE PO ×3 (09:07→21:02)
[2022-05-15] MEDS: metFORMIN HCl 500 MG TABLET PO ×2 (09:07→17:16)
[2022-05-15] MEDS: Sertraline HCL 100 MG TABLET 150 MG PO (09:07)
[2022-05-15] MEDS: Acetaminophen 325 MG TABLET 650 MG PO ×2 (09:07→16:24)
[2022-05-15] MEDS: LORazepam 1 MG TABLET PO (09:08)
[2022-05-15] MEDS: buPROPion HCl XL 300 MG TAB.ER.24H PO (09:08)
[2022-05-15] MEDS: LORazepam 0.5 MG TABLET PO ×3 (13:51→21:02)
[2022-05-15] MEDS: Nicotine Polacrilex 2 MG GUM BUCCAL (18:36)
[2022-05-15] MEDS: Ondansetron ODT 4 MG TAB.RAPDIS TRANSLINGU (19:52)
[2022-05-15] MEDS: traZODone HCL 100 MG TABLET 200 MG PO (21:01)
[2022-05-15] MEDS: Prazosin HCL 1 MG CAPSULE 2 MG PO (21:02)
--- NOTE | 2022-05-15 23:00 | HO.PSYCHPN ---
Subjective Subjective Date of Service: 05/15/22 Reason For Visit: SI Subjective Notes: Conditional Voluntary Interim History: See ECT note patient had some post ECT side effects GI affects some muscle pain patient has been dealing with fact that she and her partner are taking a break may need to move out of their apartment and her partner will be moving back in with his parents for period of time patient will be staying with a friend in [facility]. Patient feeling better generally but clearly has anxiety regarding upcoming changes Mental Status Exam Mental Status Exam Patient Appearance: Well Grooomed Patient Orientation: Person, Place and Situation Level of Consciousness: Awake Patient Behavior: Appropriate Mood Description: Constricted and Blunted Affect Description: Constricted and Depressed Ability to Follow Directions: Good Memory Description: Intact Hallucinations: None Delusions: Not Present Thought Process: Rumination Depressive Symptoms: Increased Anxiety and Difficulty Concentrating Judgement: Good Diagnostics Vital Signs (24Hr): Vital Signs - 24 hr 05/15/22 06:20 05/15/22 06:00 05/15/22 06:55 Temperature 97.8 F 97.8 F 96.8 F Pulse Rate 81 81 77 Respiratory Rate 18 18 16 Blood Pressure 116/63 116/63 102/64 Pulse Oximetry 96 96 97 Oxygen Delivery Method Room Air Room Air Oxygen Flow Rate 05/15/22 07:56 05/15/22 08:01 05/15/22 08:06 Temperature 98.9 F Pulse Rate 79 68 67 Respiratory Rate 17 19 16 Blood Pressure 143/68 H 113/78 124/76 Pulse Oximetry 95 93 Oxygen Delivery Method Nasal Cannula Room Air Room Air Oxygen Flow Rate 3 05/15/22 08:11 05/15/22 08:26 05/15/22 18:45 Temperature 98.7 F 97.5 F 99.0 F Pulse Rate 63 67 109 H Respiratory Rate 16 18 Blood Pressure 109/73 113/75 106/61 Pulse Oximetry 97 96 94 Oxygen Delivery Method Room Air Room Air Room Air Oxygen Flow Rate BMI result Body Mass Index 27.3 Labs Results: 05/16/22 08:25 Labs: Laboratory Results - last 48 hr 05/14/22 17:56 POC Glucose 75 Medications Medications Current Medications Acetaminophen (Acetaminophen 325 Mg Tablet) 650 mg PO Q6H PRN PRN Reason: Headache/Pain Mild Scale (1-3) Last Admin: 05/15/22 16:24 Dose: 650 mg Acetaminophen (Acetaminophen 325 Mg Tablet) 650 mg PO ONCE PRN PRN Reason: Pain, Mild (Pain Scale 1-3) Acetaminophen (Acetaminophen 325 Mg Tablet) 650 mg PO ONCE PRN PRN Reason: Pain, Mild (Pain Scale 1-3) Al Hydroxide/Mg Hydroxide (Magnesium Hydrox/Alum Hydrox 30 Ml Oral.Susp) 30 ml PO Q6H PRN PRN Reason: Heartburn/Nausea Albuterol Sulfate (Albuterol Sulfate 90 Mcg 8 Gm Inhaler) 2 puff INHALE Q6H PRN PRN Reason: Wheezing Bupropion HCl (Bupropion Hcl Xl 300 Mg Tab.Er.24h) 300 mg PO DAILY [facility] Last Admin: 05/15/22 09:08 Dose: 300 mg Bupropion HCl (Bupropion Hcl Xl 150 Mg Tab.Er.24h) 150 mg PO DAILY [facility] Last Admin: 05/15/22 09:07 Dose: 150 mg Hydroxyzine HCl (Hydroxyzine Hcl 25 Mg Tablet) 25 mg PO Q6H PRN PRN Reason: Anxiety Lorazepam (Lorazepam 0.5 Mg Tablet) 0.5 mg PO BID@1500,2100 [facility] Last Admin: 05/15/22 21:02 Dose: 0.5 mg Lorazepam (Lorazepam 0.5 Mg Tablet) 0.5 mg PO DAILY PRN PRN Reason: break through anxiety Last Admin: 05/15/22 16:24 Dose: 0.5 mg Lorazepam (Lorazepam 1 Mg Tablet) 1 mg PO DAILY [facility] Last Admin: 05/15/22 09:08 Dose: 1 mg Magnesium Hydroxide (Milk Of Magnesia 30 Ml Oral.Susp) 30 ml PO DAILY PRN PRN Reason: Constipation Melatonin (Melatonin 3 Mg Tablet) 6 mg PO BEDTIME PRN PRN Reason: Insomnia Metformin HCl (Metformin Hcl 500 Mg Tablet) 500 mg PO BIDWM [facility] Last Admin: 05/15/22 17:16 Dose: 500 mg Nicotine (Nicotine 21 Mg Patch.Td24) 21 mg TRANSDERMA DAILY PRN PRN Reason: smoking cessation Nicotine Polacrilex (Nicotine Polacrilex 2 Mg Gum) 2 mg BUCCAL Q1H PRN PRN Reason: Nicotine Cravings Last Admin: 05/15/22 18:36 Dose: 2 mg Ondansetron HCl (Ondansetron Odt 4 Mg Tab.Rapdis) 4 mg TRANSLINGU TID PRN PRN Reason: Nausea Last Admin: 05/15/22 19:52 Dose: 4 mg Prazosin HCl (Prazosin Hcl 1 Mg Capsule) 2 mg PO BEDTIME [facility] Last Admin: 05/15/22 21:02 Dose: 2 mg Pregabalin (Pregabalin 100 Mg Capsule) 100 mg PO TID [facility] Last Admin: 05/15/22 21:02 Dose: 100 mg Sertraline HCl (Sertraline Hcl 100 Mg Tablet) 150 mg PO DAILY [facility] Last Admin: 05/15/22 09:07 Dose: 150 mg Trazodone HCl (Trazodone Hcl 50 Mg Tablet) 50 mg PO BEDTIME PRN PRN Reason: Insomnia Trazodone HCl (Trazodone Hcl 100 Mg Tablet) 200 mg PO BEDTIME [facility] Last Admin: 05/15/22 21:01 Dose: 200 mg Allergies Allergies Allergy/AdvReac Type Severity Reaction Status Date / Time Peanut Butter Allergy Anaphylaxis Verified 05/08/22 17:18 shellfish derived Allergy Swelling Verified 05/08/22 17:20 tree nut Allergy Anaphylaxis Verified 05/08/22 17:19 Sulfa (Sulfonamide AdvReac Rash Verified 05/08/22 17:20 Antibiotics) Assessment & Plan Assessment & Plan (1) Routine medical exam: Status: Acute Code(s): Z00.00 - Encounter for general adult medical examination without abnormal findings Plan Patient is a 26 yo female, uses They/Them pronouns, with hx of refractory, severe depression, PTSD, ECT trials, chronic intermittent SI who presents for ECT for worsening depression, AH, SI.? Patient reports patient was discharged from [facility] about a month ago with the addition of Lyrica which they found helpful for anxiety and reduced their number of panic attacks down from every day to just a few times per week.? Despite this new medication, they remained depressed over these past weeks. -patient eager for ECT and would like help setting up for maintenance ECT -continues to have intermittent SI but no plans or intent and feels safe on the unit 05/10/[address] note med eval and history reviewed patient able to give informed consent would benefit from outpatient and maintenance ECT treatment if possible severe outpatient stressors including possible homelessness 05/13/2022 Patient seen in psychiatric follow-up see ECT note. Patient mood is depressed but stable. Some disorientation post ECT may change the right temporal left frontal discussed with patient. Lower Lyrica to 100 mg t.i.d. 05/15/2022 Patient seen in psychiatric follow-up. Patient feeling better status post ECT patient asking about discharge 05/15 to needs to move out of her house discussing ECT on the day of discharge given current side effects we discussed leaving it till tomorrow to decide regarding ECT on day of discharge. It is a balance between side effects I spent minutes with the patient and/or on the patient floor today, greater than?50% of which was spent counseling/coordinating care. Reason for contiued inpatient stay Substantial Risk for: harm to self and rapid decompensation
[2022-05-16 06:33] VITALS: BP 120/57; PULSE 142; RESP 16; TEMP 36.8; O2SAT 95
[2022-05-16] MEDS: Sertraline HCL 100 MG TABLET 150 MG PO (08:51)
[2022-05-16] MEDS: Pregabalin 100 MG CAPSULE PO ×3 (08:51→20:23)
[2022-05-16] MEDS: LORazepam 1 MG TABLET PO (08:52)
[2022-05-16] MEDS: buPROPion HCl XL 300 MG TAB.ER.24H PO (08:52)
[2022-05-16] MEDS: buPROPion HCl XL 150 MG TAB.ER.24H PO (08:52)
[2022-05-16] MEDS: metFORMIN HCl 500 MG TABLET PO ×2 (08:52→17:27)
[2022-05-16 09:02] LABS: Creatinine Clr Calc Pharmacy 116.9; Estimated Glomerular Filt Rate > 60
[2022-05-16] MEDS: Nicotine Polacrilex 2 MG GUM BUCCAL (11:07)
[2022-05-16] MEDS: LORazepam 0.5 MG TABLET PO ×3 (14:45→20:23)
[2022-05-16 18:00] VITALS: BP 122/65; PULSE 89; RESP 14; TEMP 37.6; O2SAT 98
[2022-05-16] MEDS: Acetaminophen 325 MG TABLET 650 MG PO (19:31)
[2022-05-16 21:12] LABS: COVID-19 Test Negative (Negative); IDNOW Serial# 55D5AD1C
[2022-05-16 21:25] VITALS: BP 103/72; PULSE 103; RESP 16; TEMP 36.8
[2022-05-16] MEDS: traZODone HCL 100 MG TABLET 200 MG PO (21:27)
[2022-05-16] MEDS: Prazosin HCL 1 MG CAPSULE 2 MG PO (21:27)
--- NOTE | 2022-05-16 22:19 | P.PNPSI_ITS ---
Subjective Subjective Date of Service: 05/16/22 Reason For Visit: SI Subjective Notes: Conditional Voluntary Interim History: Patient feeling psychiatrically better status post ECT denies suicidality. Discussed significant side effects post ECT yesterday we discussed not doing ECT on the day of discharge has might be 2 to stabilizing. We discussed adding Seroquel p.r.n. for anxiety. Patient continues to feel safe for discharge tomorrow Mental Status Exam Mental Status Exam Patient Appearance: Well Grooomed Patient Orientation: Person, Place and Situation Level of Consciousness: Awake Patient Behavior: Appropriate Mood Description: Constricted and Blunted Affect Description: Constricted and Depressed Ability to Follow Directions: Good Memory Description: Intact Hallucinations: None Delusions: Not Present Thought Process: Rumination Depressive Symptoms: Increased Anxiety and Difficulty Concentrating Judgement: Good Diagnostics Vital Signs (24Hr): Vital Signs - 24 hr 05/16/22 06:33 05/16/22 18:00 05/16/22 21:25 Temperature 98.2 F 99.7 F 98.3 F Pulse Rate 142 H 89 103 H Respiratory Rate 16 14 16 Blood Pressure 120/57 L 122/65 103/72 Pulse Oximetry 95 98 BMI result Body Mass Index 27.3 Labs Results: 05/16/22 08:25 Labs: Laboratory Results - last 48 hr 05/16/22 05/16/22 08:25 20:40 Creatinine 0.81 Estim Creat Clear Calc 116.9 Estimated GFR > 60 COVID-19 ([facility]) Negative COVID-19 Clin Com See Note Medications Medications Current Medications Acetaminophen (Acetaminophen 325 Mg Tablet) 650 mg PO Q6H PRN PRN Reason: Headache/Pain Mild Scale (1-3) Last Admin: 05/16/22 19:31 Dose: 650 mg Acetaminophen (Acetaminophen 325 Mg Tablet) 650 mg PO ONCE PRN PRN Reason: Pain, Mild (Pain Scale 1-3) Acetaminophen (Acetaminophen 325 Mg Tablet) 650 mg PO ONCE PRN PRN Reason: Pain, Mild (Pain Scale 1-3) Al Hydroxide/Mg Hydroxide (Magnesium Hydrox/Alum Hydrox 30 Ml Oral.Susp) 30 ml PO Q6H PRN PRN Reason: Heartburn/Nausea Albuterol Sulfate (Albuterol Sulfate 90 Mcg 8 Gm Inhaler) 2 puff INHALE Q6H PRN PRN Reason: Wheezing Bupropion HCl (Bupropion Hcl Xl 300 Mg Tab.Er.24h) 300 mg PO DAILY [facility] Last Admin: 05/16/22 08:52 Dose: 300 mg Bupropion HCl (Bupropion Hcl Xl 150 Mg Tab.Er.24h) 150 mg PO DAILY [facility] Last Admin: 05/16/22 08:52 Dose: 150 mg Guaifenesin/Dextromethorphan (Guaifenesin Dm 100/10/5 Ml 5 Ml Syrup) 5 ml PO Q6H PRN PRN Reason: cough Hydroxyzine HCl (Hydroxyzine Hcl 25 Mg Tablet) 25 mg PO Q6H PRN PRN Reason: Anxiety Lorazepam (Lorazepam 0.5 Mg Tablet) 0.5 mg PO BID@1500,2100 [facility] Last Admin: 05/16/22 20:23 Dose: 0.5 mg Lorazepam (Lorazepam 0.5 Mg Tablet) 0.5 mg PO DAILY PRN PRN Reason: break through anxiety Last Admin: 05/16/22 16:38 Dose: 0.5 mg Lorazepam (Lorazepam 1 Mg Tablet) 1 mg PO DAILY [facility] Last Admin: 05/16/22 08:52 Dose: 1 mg Magnesium Hydroxide (Milk Of Magnesia 30 Ml Oral.Susp) 30 ml PO DAILY PRN PRN Reason: Constipation Melatonin (Melatonin 3 Mg Tablet) 6 mg PO BEDTIME PRN PRN Reason: Insomnia Metformin HCl (Metformin Hcl 500 Mg Tablet) 500 mg PO BIDWM [facility] Last Admin: 05/16/22 17:27 Dose: 500 mg Nicotine (Nicotine 21 Mg Patch.Td24) 21 mg TRANSDERMA DAILY PRN PRN Reason: smoking cessation Nicotine Polacrilex (Nicotine Polacrilex 2 Mg Gum) 2 mg BUCCAL Q1H PRN PRN Reason: Nicotine Cravings Last Admin: 05/16/22 11:07 Dose: 2 mg Ondansetron HCl (Ondansetron Odt 4 Mg Tab.Rapdis) 4 mg TRANSLINGU TID PRN PRN Reason: Nausea Last Admin: 05/15/22 19:52 Dose: 4 mg Prazosin HCl (Prazosin Hcl 1 Mg Capsule) 2 mg PO BEDTIME [facility] Last Admin: 05/16/22 21:27 Dose: 2 mg Pregabalin (Pregabalin 100 Mg Capsule) 100 mg PO TID [facility] Last Admin: 05/16/22 20:23 Dose: 100 mg Quetiapine Fumarate (Quetiapine Fumarate 25 Mg Tablet) 25 mg PO BID PRN PRN Reason: Anxiety Sertraline HCl (Sertraline Hcl 100 Mg Tablet) 150 mg PO DAILY [facility] Last Admin: 05/16/22 08:51 Dose: 150 mg Trazodone HCl (Trazodone Hcl 50 Mg Tablet) 50 mg PO BEDTIME PRN PRN Reason: Insomnia Trazodone HCl (Trazodone Hcl 100 Mg Tablet) 200 mg PO BEDTIME [facility] Last Admin: 05/16/22 21:27 Dose: 200 mg Allergies Allergies Allergy/AdvReac Type Severity Reaction Status Date / Time Peanut Butter Allergy Anaphylaxis Verified 05/08/22 17:18 shellfish derived Allergy Swelling Verified 05/08/22 17:20 tree nut Allergy Anaphylaxis Verified 05/08/22 17:19 Sulfa (Sulfonamide AdvReac Rash Verified 05/08/22 17:20 Antibiotics) Assessment & Plan Assessment & Plan (1) MDD (major depressive disorder), recurrent, severe, with psychosis: Status: Acute Code(s): F33.3 - Major depressive disorder, recurrent, severe with psychotic symptoms (2) Chronic post-traumatic stress disorder (PTSD): Status: Acute Code(s): F43.12 - Post-traumatic stress disorder, chronic Plan Patient seems stable for discharge tomorrow will try and set up in transitional up appointment post discharge. Patient does not seem able to do outpatient maintenance ECT Seroquel p.r.n. added discharge tomorrow if stable I spent minutes with the patient and/or on the patient floor today, greater than?50% of which was spent counseling/coordinating care. Reason for contiued inpatient stay Substantial Risk for: harm to self and rapid decompensation
--- NOTE | 2022-05-17 | ECG_ITS ---
Test Reason : CHEST DISCOMFORT Blood Pressure : / mmHG Vent. Rate : 070 BPM Atrial Rate : 070 BPM P-R Int : 128 ms QRS Dur : 082 ms QT Int : 380 ms P-R-T Axes : 000 039 037 degrees QTc Int : 410 ms Normal sinus rhythm with sinus arrhythmia Nonspecific T wave abnormality Abnormal ECG When compared with ECG of 09-MAY-2022 12:32, No significant change was found Referred By: Sunday Ambriz Electronically Signed By:Omega Hatfield
[2022-05-17 06:00] VITALS: BP 90/53; PULSE 135; RESP 16; TEMP 35.8; O2SAT 98
[2022-05-17] MEDS: buPROPion HCl XL 150 MG TAB.ER.24H PO (09:00)
[2022-05-17] MEDS: Sertraline HCL 100 MG TABLET 150 MG PO (09:01)
[2022-05-17] MEDS: metFORMIN HCl 500 MG TABLET PO (09:01)
[2022-05-17] MEDS: buPROPion HCl XL 300 MG TAB.ER.24H PO (09:01)
[2022-05-17] MEDS: Pregabalin 100 MG CAPSULE PO ×2 (09:02→15:16)
[2022-05-17] MEDS: LORazepam 1 MG TABLET PO (09:02)
[2022-05-17 11:04] LABS: MANUAL DIFF FLAG NO
[2022-05-17 11:06] LABS: Basophils Percent Auto 0.4 % (0-2); Eosinophils Absolute Auto 0.1 X10*3/uL (0.0-0.4); Eosinophils Percent Auto 0.9 % (0-4); Hematocrit 38.5 % (37.0-47.0); Imm Gran Abs Auto 0.01 X10*3/uL (0.00-0.03); Imm Gran Pct Auto 0.1 % (0.0-0.4); Lymphocytes Absolute Auto 1.5 X10*3/uL (1.2-4.9); Lymphocytes Percent Auto 23.1 % (20-40); Mean Corpuscular HGB Conc 33.8 g/dl (31.0-35.0); Mean Corpuscular Volume 88.7 fL (80.0-98.0); Mean Platelet Volume 10.6 fL (9.4-12.3); Monocytes Absolute Auto 0.4 X10*3/uL (0.1-1.2); Monocytes Percent Auto 5.7 % (2-11); Neutrophils Absolute Auto 4.7 x10*3/uL (2.0-8.3); Neutrophils Percent Auto 69.8 % (45-73); Platelet Count 220 X10*3/uL (160-400); Red Blood Count 4.34 X10*6/uL (4.20-5.50); Red Cell Distribution Width 12.4 % (11.0-16.0); White Blood Count 6.7 X10*3/uL (4.8-10.8)
[2022-05-17 11:28] LABS: Alanine Aminotransferase 11 U/L (0-31); Albumin Level 4.5 g/dL (3.5-5.0); Alkaline Phosphatase 57 U/L (39-117); Anion Gap 14 (12-20); Aspartate Amino Transferase 11 U/L (5-31); Bilirubin Total 0.4 mg/dL (0.0-1.0); Blood Urea Nitrogen 9 mg/dL (9-16); Calcium 9.2 mg/dL (8.4-10.2); Carbon Dioxide 21 mmol/L (22-29); Chloride 109 mmol/L (96-108); Creatinine Clr Calc Pharmacy 126.2; Estimated Glomerular Filt Rate > 60; Glucose Random 122 mg/dL (60-115); Sodium 140 mmol/L (135-145)
[2022-05-17] MEDS: LORazepam 0.5 MG TABLET PO (12:03)
[2022-05-17] MEDS: Nicotine Polacrilex 2 MG GUM BUCCAL (12:03)
--- NOTE | 2022-05-17 13:28 | P.DS_ITS ---
DS: Providers Provider Date of Service: 05/17/22 Date of admission: 05/08/22 16:41 Primary care physician: Unknown Physician Consults: 05/08/22 21:04 Consult to Hospitalist Routine Consulting Provider: Hospitalist Reason For Exam: ECT clearance & routine admission phys Attending physician on discharge: Sunday Ambriz Discharging clinician: Anthony Hayden DS: Diagnosis Discharge Diagnosis (1) Major depressive disorder, recurrent episode, severe with anxious distress: Status: Acute (2) Chronic post-traumatic stress disorder (PTSD): Status: Acute DS: Medications Discharge Medications Home Medications: Home Medications Medication Instructions Recorded Confirmed albuterol sulfate 90 mcg/actuation 2 inh inhalation Q6H PRN Wheezing 05/08/22 05/08/22 aerosol inhaler (ProAir HFA) melatonin 5 mg PO BEDTIME PRN Insomnia 05/08/22 05/08/22 sertraline 150 mg PO DAILY 05/08/22 05/08/22 topiramate 50 mg PO BID 05/08/22 05/08/22 Previous Rx's Medication Instructions Recorded Lyrica 200 mg PO TID 15 days #45 caps 05/17/22 bupropion HCl 150 mg 24 hr tablet, 150 mg PO DAILY 30 days #30 tabs 05/17/22 extended release bupropion HCl 300 mg 24 hr tablet, 300 mg PO DAILY 30 days #30 tabs 05/17/22 extended release lorazepam 1 mg tablet 1 mg PO DIRECTED #30 tabs 05/17/22 quetiapine 25 mg tablet 25 mg PO BID PRN Anxiety 30 days 05/17/22 #30 tabs sertraline 100 mg tablet 150 mg PO DAILY 30 days #45 tabs 05/17/22 trazodone 100 mg tablet 50 mg PO BEDTIME 30 days #15 tabs 05/17/22 pregabalin 150 mg capsule (Lyrica) 150 mg PO TID #60 caps 05/20/22 Mental Status Exam Mental Status Exam Patient Appearance: Well Grooomed Patient Orientation: Person, Place and Situation Level of Consciousness: Awake Patient Behavior: Appropriate Mood Description: Constricted and Blunted Affect Description: Constricted and Depressed Ability to Follow Directions: Good Speech Pattern: Clear Memory Description: Intact Hallucinations: None Delusions: Not Present Thought Process: Rumination Depressive Symptoms: Increased Anxiety and Difficulty Concentrating Judgement: Good Judgement and Insight: Impulse control seemed intact DS: Summary Hospital Course Hospital Course: Signed Patient: Komal Ramirez#: [id number]: 1995Acct:[id number]/Sex: 26 / FLoc:[id number]: Sunday Ambriz MD cc: ~ HPI Date of Service: 05/09/22 Chief Complaint: SI Sources of Information: patient interviewed, chart reviewed and crisis/core team assessment reviewed HPI Subjective Notes: [place] Warning and Conditional Voluntary Narrative: Patient is a 26 yo female, uses They/Them pronouns, with hx of refractory, severe depression, PTSD, ECT trials, chronic intermittent SI who presents for ECT for worsening depression, AH, SI. Patient reports patient was discharged from [facility] about a month ago with the addition of Lyrica which they found helpful for anxiety and reduced her number of panic attacks down from every day to just a few times per week. Despite this new medication, they remained depressed over these past weeks. Patient has been able to continue attending to ADLs however endorses excessive sleep, diminished interest, increased guilt, low energy, poor concentration. Also Patient reports that patient's chronic suicidality has become more severe and included plans and eventually an intention to either overdose or hang themself; patient's partner is a strong protective factor and kept patient from proceeding forward. Patient reports intermittent auditory hallucinations which are only present during severe depression of a commentary on her actions. Patient has insight to know this is is hallucination and due to depression. 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 Patient however cites difficulty getting a ride to and from maintenance ECT which patient thinks would likely help them to remain stable. Patient reports they have ongoing PTSD symptoms from history of trauma, though they did not elaborate. Denies any history of manic episodes or behaviors. Currently patient has intermittent SI but no plan or intention. Patient remains sober from alcohol for the past 19 months. Patient is eager for ECT trial. Past Psychiatric History: Long history of refractory depression Patient has therapist for the past 3 years whom patient sees once a week; good rapport [facility] in process Moderate Success with ECT trials Past med trials include: [place]: Caused nausea Clozapine: Does not remember it working Medical Evaluation Reviewed: Hospitalist Adam [facility] Medical History (Updated 05/09/22 @ 15:55 by Valentino Hernandez MD) Alcohol use disorder, moderate, in sustained remission, dependence Chronic post-traumatic stress disorder (PTSD) MDD (major depressive disorder), recurrent, severe, with psychosis Panic disorder Family History: Mother: Schizoaffective disorder Social History: Graduated high school; some college but discontinued due to depressive/anxious symptoms 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; quit a couple months ago due to overwhelming depression and anxiety Has significant other with whom patient lives Currently patient and partner are having to move out of the apartment due to finances; another apartment is pending No interactions with biological family Substance History: History of alcohol abuse; sober for 19 months using AA Trauma History: History of trauma; patient did not elaborate Diagnostics Vital Signs (24Hr): Vital Signs - 24 hr 05/08/22 16:57 05/09/22 07:00 Temperature 97.6 F 97.7 F Pulse Rate 82 94 Respiratory Rate 16 Blood Pressure 117/79 110/61 Pulse Oximetry 98 Oxygen Delivery Method Room Air BMI result Body Mass Index 27.3 Labs Results: 05/09/22 07:57 document embedded image Labs: Laboratory Results - last 48 hr 05/09/22 05/09/22 07:57 07:57 Sodium 139 Potassium 4.4 Chloride 110 H Carbon Dioxide 22 Anion Gap 11 L BUN 16 Creatinine 0.94 Estim Creat Clear Calc 100.7 Estimated GFR > 60 Fasting Glucose 76 Estimat Average Glucose 97 Hemoglobin A1c % 5.0 Calcium 8.8 Total Bilirubin 0.3 AST 21 ALT 33 H Alkaline Phosphatase 75 Total Protein 7.0 Albumin 4.4 Triglycerides 83 Cholesterol 196 LDL Cholesterol, Calc 133 HDL Cholesterol 47 Meds/Allergies Meds Home Medications Medication Instructions Recorded Confirmed Type Ativan 0.5 mg PO BID@1500,2100 05/08/22 05/08/22 History Ativan 1 mg PO DAILY 05/08/22 05/08/22 History Lyrica 200 mg PO TID 05/08/22 05/08/22 History Wellbutrin SR 450 mg PO DAILY 05/08/22 05/08/22 History albuterol sulfate 90 mcg/actuation 2 inh inhalation Q6H PRN Wheezing 05/08/22 05/08/22 History aerosol inhaler (ProAir HFA) melatonin 5 mg PO BEDTIME PRN Insomnia 05/08/22 05/08/22 History metformin 500 mg PO BID 05/08/22 05/08/22 History prazosin 2 mg PO BEDTIME 05/08/22 05/08/22 History sertraline 150 mg PO DAILY 05/08/22 05/08/22 History topiramate 50 mg PO BID 05/08/22 05/08/22 History trazodone 200 mg PO BEDTIME 05/08/22 05/08/22 History Allergies Allergies Allergy/AdvReac Type Severity Reaction Status Date / Time Peanut Butter Allergy Anaphylaxis Verified 05/08/22 17:18 shellfish derived Allergy Swelling Verified 05/08/22 17:20 tree nut Allergy Anaphylaxis Verified 05/08/22 17:19 Sulfa (Sulfonamide AdvReac Rash Verified 05/08/22 17:20 Antibiotics) Mental Status Exam Mental Status Exam Narrative: Pt is alert and oriented; behavior is cooperative, friendly and calm; patient is not in distress; dressed in casual attire with unkempt hair but adequate hygiene; mood is described as depressed and affect congruent, blunted, downcast; minimal eye contact but making effort; Speech is normal rate, volume and prosody and not pressured; psychomotor retardation present; thought process is organized and goal directed; Thought content is on tx, trying to be hopeful; otherwise pertinent to relevant topics and without any delusional content, paranoid ideations or grandiosity; Intermittent SI present; no HI. Intermittent AH present. Patients insight and judgment appear intact. Assessment & Plan Assessment & Plan (1) MDD (major depressive disorder), recurrent, severe, with psychosis: Status: Acute Code(s): F33.3 - Major depressive disorder, recurrent, severe with psychotic symptoms (2) Chronic post-traumatic stress disorder (PTSD): Status: Acute Code(s): F43.12 - Post-traumatic stress disorder, chronic (3) Panic disorder: Status: Acute Code(s): F41.0 - Panic disorder [episodic paroxysmal anxiety] (4) Alcohol use disorder, moderate, in sustained remission, dependence: Status: Acute Code(s): F10.21 - Alcohol dependence, in remission Plan Patient is a 26 yo female, uses They/Them pronouns, with hx of refractory, severe depression, PTSD, ECT trials, chronic intermittent SI who presents for ECT for worsening depression, AH, SI. Patient reports patient was discharged from [facility] about a month ago with the addition of Lyrica which they found helpful for anxiety and reduced their number of panic attacks down from every day to just a few times per week. Despite this new medication, they remained depressed over these past weeks. -patient eager for ECT and would like help setting up for maintenance ECT -continues to have intermittent SI but no plans or intent and feels safe on the unit PLAN: CV Q 15 minute checks Continue home medications for now Patient reports that Zoloft has been helpful; has never been on a higher dose; will consider increasing Consult placed for ECT clearance; EKG ordered for ECT clearance Patient educated on: diagnosis, medication risk/benefits, substance abuse and therapeutic strategies Informed Consent: understands Reason for continued inpatient stay Substantial Risk for: inability to function and rapid decompensation Dictated By:Valentino Hernandez MDSigned By:<Electronically signed by Valentino Hernandez MD>05/09/22 1556 DD/ 1011TD/TT: 05/09/22 1011Transcriptionist: Hospital course Please see above for pre admission history. Patient was transferred from [facility] with the intention of electroconvulsive therapy. She had had previously at [facility] and also at [facility]. Patient was transferred admitted on a conditional voluntary. The patient did receive a hospitalist evaluation and there were no noted contraindications to ECT. The patient was continued on Wellbutrin sertraline lower ago was lowered to 100 t.i.d. hold night prior to ECT with further adjustments to be made as needed. The patient did have some constraints regarding ECT as she felt that she probably could not to maintenance treatment and she and her boyfriend of 7 years needed to move out of the apartment and she was hoping for relatively brief admission so she could help pack and transition to a different living situation. The patient's boyfriend was supportive but did note that he was going to live with his parents and she was going to move in with friends. Patient seemed to be dealing with this in okay manner did feels apprised as they had been dealing with these issues together for number of years The patient was only able to have 3 inpatient ECT treatments her last treatment was right temporal left frontal 0.5 program pulse with energy 100% seizure 48 seconds anesthesia the included 16 of etomidate 100 succinylcholine and 5 mg rocuronium there was some significant pain and nausea vomiting postop the patient did have significant improvement she was future oriented and thoughts of suicide prior to discharge although they are always back up thoughts today might be better off the patient denied plan or intent. She understood she needs to go home to pack and was ripped going to be living with a friend in the held hands. She was going to follow-up with [facility]. Patient's sensorium was clear and she was future oriented time of discharge. She was flat mildly dysphoric but could be active and engaged in the milieu and showed some self- sufficiency Status at Discharge Functional status at discharge: independent ambulation Overall status at discharge: patient is progressing back to baseline Time Spent with Patient Time attestation: Total time spent providing and/or coordinating discharge services: Time spent: Less than 30 minutes Discharge Plan Discharge Patient Disposition: Home, Self-Care Discharge Diagnosis: major depression recurrent severe ptsd Referrals: Psychiatric Medication Management: Nicole Gutierrez [Other] - 06/20/22 11:00 am (This is a virtual Telehealth appointment via Zoom) Therapy: Rick Pride [Other] - 1 Week (Please contact your therapist directly to schedule a follow-up appointment) [facility] Appointment: Dr. Sunday Ambriz [Other] - 05/31/22 11:00 am (This is a virtual Telehealth appointment) Janet Sagastuem MD [Physician] - 1 Week (office will reach out to pt. for follow-up appt.) Discharge Medications: New sertraline 100 mg Tablet 150 mg PO DAILY 30 Days Qty: 45 0RF trazodone 100 mg Tablet 50 mg PO BEDTIME 30 Days Qty: 15 0RF quetiapine 25 mg Tablet 25 mg PO BID PRN (Reason: Anxiety) 30 Days Qty: 30 1RF Rx Instructions: 1/2-1 2 X DAY NEEDED FOR ANXIETY bupropion HCl 300 mg Tablet Extended Release 24 Hr 300 mg PO DAILY 30 Days Qty: 30 0RF bupropion HCl 150 mg Tablet Extended Release 24 Hr 150 mg PO DAILY 30 Days Qty: 30 0RF lorazepam 1 mg tablet 1 mg PO DIRECTED Qty: 30 1RF Rx Instructions: 1 TAB IN AM 1/2 TAB AFTERNOON 1/2 TAB BEDTIME pregabalin [Lyrica] 150 mg capsule 150 mg PO TID Qty: 60 1RF Continued albuterol sulfate [ProAir HFA] 90 mcg/actuation HFA aerosol inhaler 2 inh inhalation Q6H PRN (Reason: Wheezing) melatonin tablet 5 mg PO BEDTIME PRN (Reason: Insomnia) sertraline tablet 150 mg PO DAILY topiramate tablet 50 mg PO BID Lyrica capsule 200 mg PO TID 15 Days Qty: 45 1RF Discontinued Ativan tablet 1 mg PO DAILY Ativan tablet 0.5 mg PO BID@1500,2100 Wellbutrin SR tablet 450 mg PO DAILY metformin tablet 500 mg PO BID prazosin capsule 2 mg PO BEDTIME trazodone tablet 200 mg PO BEDTIME Discharge Orders: Discharge Order (Routine); Ordered 05/17/22 Ordered By: Sunday Ambriz Diet: Advance to usual diet Activity on Discharge: As tolerated Stand Alone Forms: Patient Portal Discharge page, Community Support Care Plan Goals: stabilize mood no self harm Health Concerns: depression si anxiety/ptsd low bp with prazosin Plan of Treatment: stop prazosin and glucophage may have been causing side effects continue medication and therapy at [facility] if you can get ride for outpt ect call dr ambriz office [phone] for [facility] consultation call [facility] psychiatry [phone] Assessment: improved mood states feeling safe Discharge Date/Time: 05/17/22 15:34
[2022-05-17] MEDS: hydrOXYzine HCL 25 MG TABLET PO (15:16)
== END 2022-05-17 15:34 | disposition home or self-care (01) | DRG 885 ==
PROVIDERS: Psychiatry & Neurology Psychiatry; Registered Nurse; Social Worker; Admitting Provider Psychiatry & Neurology Psychiatry; Visit Provider Psychiatry & Neurology Psychiatry
PROC: GZB4ZZZ Other Electroconvulsive Therapy (ICD-10-PCS; CPT 90870; principal; 2022-05-10 11:00)
DX: F33.3 Major depressive disorder, recurrent, severe with psychotic symptoms (principal); R45.851 Suicidal ideations; F43.12 Post-traumatic stress disorder, chronic; F17.210 Nicotine dependence, cigarettes, uncomplicated; F41.0 Panic disorder [episodic paroxysmal anxiety]; F10.21 Alcohol dependence, in remission; J45.909 Unspecified asthma, uncomplicated; G43.909 Migraine, unspecified, not intractable, without status migrainosus; Z20.822 Contact with and (suspected) exposure to COVID-19; Z71.6 Tobacco abuse counseling; Z91.040 Latex allergy status; Z91.010 Allergy to peanuts; Z88.2 Allergy status to sulfonamides; Z87.892 Personal history of anaphylaxis; Z79.899 Other long term (current) drug therapy
CPT/HCPCS: 36415; 80053; 80061; 82565; 82607; 82746; 82947; 83036; 84443; 85025; 87635; 90870; 93005; J0330; J1885; J2405